=== PATIENT | male | born 1975 | race Hispanic/Latino ===

== ENCOUNTER 2016-11-29 08:31 | Inpatient (IN) | payer BC ==
--- NOTE | 2016-11-29 09:18 | ED PDOC ---
HPI: Back Chief Complaint (Provider): Intractable back pain History Per: Patient History/Exam Limitations: no limitations Current Symptoms Are (Timing): Still Present Quality Of Discomfort: "Pain" Severity: Severe Pain Scale Rating Of: 6 Associated Symptoms: New Numbness Exacerbating Factor(s): Movement, Standing Additional History Per: Patient Additional Complaint(s): 41 yo M with PMH of HTN presents with intractable back pain. Pt states he has had pain x 2 years but this has gotten acutely worse. Pain radiates down both legs, R>L, with occasional numbness in b/l legs. Denies bowel/bladder incontinence. Pt states PO pain medications do not help to relieve the pain at all. Denies any fall or trauma. <Kitty Han - Last Filed: 11/29/16 10:55> <Jewels Kay - Last Filed: 11/29/16 16:48> Time Seen by Provider: 11/29/16 08:56 Chief Complaint (Nursing): Back Pain Past Medical History Reviewed: Historical Data, Nursing Documentation, Vital Signs - Medical History PMH: HTN - Family History Family History: States: Unknown Family Hx <Kitty Han - Last Filed: 11/29/16 10:55> Vital Signs: Last Vital Signs Temp 98.6 F 11/29/16 12:01 Pulse 107 H 11/29/16 12:01 Resp 20 11/29/16 12:01 BP 124/78 11/29/16 12:01 Pulse Ox 95 11/29/16 12:01 <Jewels Kay - Last Filed: 11/29/16 16:48> - Home Medications Home Medications: Ambulatory Orders Medication Instructions Recorded Lisinopril [Zestril] 10 mg PO DAILY 11/29/16 - Allergies Allergies/Adverse Reactions: Allergies Allergy/AdvReac Type Severity Reaction Status Date / Time No Known Allergies Allergy Verified 11/29/16 08:35 Review of Systems Constitutional: Negative for: Fever, Chills Cardiovascular: Negative for: Chest Pain Respiratory: Negative for: Shortness of Breath Genitourinary Male: Negative for: Incontinence Musculoskeletal: Positive for: Back Pain <Kitty Han - Last Filed: 11/29/16 10:55> Physical Exam - Reviewed Nursing Documentation Reviewed: Yes Vital Signs Reviewed: Yes - Physical Exam Appears: Positive for: No Acute Distress Head Exam: Positive for: NORMAL INSPECTION Skin: Positive for: Normal Color, Warm, Dry Eye Exam: Positive for: Normal appearance Cardiovascular/Chest: Positive for: Regular Rate, Rhythm Respiratory: Positive for: Normal Breath Sounds Gastrointestinal/Abdominal: Positive for: Soft. Negative for: Tenderness Back: Positive for: Normal Inspection, Vertebral Tenderness (LS spine) Extremity: Positive for: Other (venous stasis changes b/l LE). Negative for: Calf Tenderness Neurologic/Psych: Positive for: Alert, Oriented, Gait (antalgic 2/2 back pain) <Kitty Han - Last Filed: 11/29/16 10:55> - Progress ED Course And Treament: Pt to be admitted. Dr. Wiley aware and accepts admission. <Kitty Han - Last Filed: 11/29/16 10:55> - Laboratory Results Result Diagrams: 11/29/16 14:50 11/29/16 14:50 <Jewels Kay - Last Filed: 11/29/16 16:48> Disposition - Patient ED Disposition Is Patient to be Admitted: Yes - Disposition Disposition Time: 10:56 <Kitty Han - Last Filed: 11/29/16 10:55> <Jewels Kay - Last Filed: 11/29/16 16:48> - Clinical Impression Clinical Impression: Intractable low back pain - Disposition Condition: GOOD Addendum Addendum: 11/29/16 Pt with intractable back pain, Admit for further pain management. <Jewels Kay - Last Filed: 11/29/16 16:48>
[2016-11-29 15:09] LABS: BASO # 0.1 K/uL (0.0-0.2); BASO % 0.6 % (0.0-2.0); EOS # 0.3 K/uL (0.0-0.7); EOS % 2.4 % (0.0-4.0); HEMATOCRIT 46.5 % (35.0-51.0); LYMPH # 3.8 K/uL (1.0-4.3); LYMPH % 33.5 % (20.0-40.0); MEAN CELL VOLUME 88.5 fl (80.0-94.0); MEAN CORPUSCULAR HEMOGLOBIN 30.2 pg (27.0-31.0); MEAN CORPUSCULAR HGB CONC 34.1 g/dL (33.0-37.0); MEAN PLATELET VOLUME 8.1 fl (7.2-11.7); MONO # 0.8 K/uL (0.0-0.8); MONO % 7.1 % (0.0-10.0); NEUT # 6.4 K/uL (1.8-7.0); NEUT % 56.4 % (50.0-75.0); RED CELL DISTRIBUTION WIDTH 14.1 % (11.5-14.5); WHITE BLOOD COUNT 11.4 K/uL (4.8-10.8)
[2016-11-29 15:16] LABS: ALB/GLOB RATIO 1.5 (1.0-2.1); ALKALINE PHOSPHATASE 71 U/L (38-126); ALT/SGPT 32 U/L (21-72); AST/SGOT 29 U/L (17-59); BILIRUBIN,TOTAL 0.8 mg/dl (0.2-1.3); BLOOD UREA NITROGEN 18 mg/dl (9-20); CALCIUM 9.6 mg/dL (8.4-10.2); CARBON DIOXIDE 24 mmol/L (22-30); CHLORIDE 101 mmol/L (98-107); GFR AFRICAN-AMERICAN > 60; GLUCOSE,RANDOM 96 mg/dL (75-110); SODIUM 138 mmol/l (132-148); TOTAL PROTEIN 7.6 G/DL (6.3-8.2)
[2016-11-29 16:05] LABS: PARTIAL THROMBOPLASTIN TIME 30.8 SECONDS (23.3-32.5)
--- NOTE | 2016-11-30 00:18 | CP.PCM.HP ---
History of Present Illness - History of Present Illness History of Present Illness: This is a 41 y/o male admitted through the ER for intractable pain. 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 He has been suffering from chronic low back pain for 2 years which at times radiate to the lower extremities right more than left. He denies any trauma or being in an accident. Herber otero takes marijuana for pain relief. He noted some atrophy of the right calf and noted increasing pain on the lower extremity. Medical Hx HTN Denies any allergy. Present on Admission - Present on Admission Any Indicators Present on Admission: No History of DVT/PE: No History of Uncontrolled Diabetes: No Urinary Catheter: No Decubitus Ulcer Present: No Review of Systems - Musculoskeletal Musculoskeletal: Back Pain, Muscle Weakness, Radiating Pain into Limb Past Patient History - Past Medical History & Family History Past Medical History?: Yes - Past Social History Smoking Status: Never Smoked - CARDIAC Hx Cardiac Disorders: Yes - MUSCULOSKELETAL/RHEUMATOLOGICAL Hx Falls: No - PSYCHIATRIC Hx Substance Use: No - SURGICAL HISTORY Hx Surgeries: No - ANESTHESIA Hx Anesthesia: No Meds Allergies/Adverse Reactions: Allergies Allergy/AdvReac Type Severity Reaction Status Date / Time No Known Allergies Allergy Verified 11/29/16 08:35 Physical Exam - Head Exam Head Exam: NORMAL INSPECTION - Eye Exam Eye Exam: Normal appearance - Respiratory Exam Respiratory Exam: Clear to Auscultation Bilateral - Extremities Exam Additional comments: atrophy of the right calf Results - Vital Signs Recent Vital Signs: Last Vital Signs Temp 97.8 F 11/29/16 16:58 Pulse 56 L 11/29/16 16:58 Resp 18 11/29/16 16:58 BP 142/77 11/29/16 16:58 Pulse Ox 96 11/29/16 16:58 - Labs Result Diagrams: 11/29/16 14:50 11/29/16 14:50 Labs: Laboratory Results - last 24 hr 11/29/16 11/29/16 11/29/16 14:50 14:50 14:50 WBC 11.4 H RBC 5.26 Hgb 15.9 Hct 46.5 MCV 88.5 MCH 30.2 MCHC 34.1 RDW 14.1 Plt Count 235 MPV 8.1 Neut % (Auto) 56.4 Lymph % (Auto) 33.5 [place] % (Auto) 7.1 Eos % (Auto) 2.4 Baso % (Auto) 0.6 Neut # 6.4 Lymph # 3.8 [place] # 0.8 Eos # 0.3 Baso # 0.1 PT 10.7 INR 1.03 APTT 30.8 Sodium 138 Potassium 4.0 Chloride 101 Carbon Dioxide 24 Anion Gap 16 BUN 18 Creatinine 0.8 Est GFR ( Amer) > 60 Est GFR (Non-Af Amer) > 60 Random Glucose 96 Calcium 9.6 Total Bilirubin 0.8 AST 29 ALT 32 Alkaline Phosphatase 71 Total Protein 7.6 Albumin 4.5 Globulin 3.1 Albumin/Globulin Ratio 1.5 Assessment & Plan (1) Atrophy of calf muscles on right Status: Acute (2) Hypertension Status: Acute (3) Intractable low back pain Status: Acute - Assessment and Plan (Free Text) Plan: Cont all meds TSH check labs adjust fluids therapy pain meds lev 4 oplan cont meds cont NV
[2016-11-30] MEDS: Dextrose 5%/0.45% NS 1,000 ML IV SCH ×3 (06:02→22:56)
[2016-11-30] MEDS ORDERED: Absorbable Gelatin Sponge Size 12-7 ONE (06:56)
[2016-11-30] MEDS ORDERED: Bupivacaine HCl 0.25% PF (30 ml) Inj ONE (06:56)
[2016-11-30] MEDS ORDERED: Lidocaine 2% w Epi 1:100,000 Inj IJ ONE (06:57)
[2016-11-30] MEDS ORDERED: Thrombin Topical 5,000 IU Spray Kit ONE (06:57)
[2016-11-30] MEDS ORDERED: ePHEDrine 50 mg/ml Inj ONE (07:03)
[2016-11-30] MEDS ORDERED: Midazolam 2 MG/2 ML VIAL ONE (07:03)
[2016-11-30] MEDS ORDERED: Propofol 10 mg/ml Inj (20 ML) ONE (07:03)
[2016-11-30] MEDS ORDERED: Succinylcholine 200 mg/10 ml Inj IV ONE (07:03)
[2016-11-30] MEDS ORDERED: Rocuronium 10 mg/ml (5 ml) ONE ×2 (07:19)
[2016-11-30] MEDS ORDERED: Lactated Ringer's 1,000 ML IV ONE ×2 (07:30→09:35)
--- NOTE | 2016-11-30 08:00 | CP.PCM.CON ---
History of Present Illness - History of Present Illness History of Present Illness: DR. Travis asked to see pt who was admitted with intractable LBP radiating to BLE > R leg with ongoing paresthesias x many years and worsening,pt has failed conservative management with PT,epidural injections and prescribed meds,MRI images reviewed, pt found to have lumbar spondylosis with HNP and instability, surgical and non surgical options discussed with pt,due to worsening symptoms and difficulty ambulating pt scheduled to have a lumbar lami and fusion L3-4,L4- [address] Travis. Past Patient History - Past Medical History & Family History Past Medical History?: Yes - Past Social History Smoking Status: Never Smoked - CARDIAC Hx Cardiac Disorders: Yes - MUSCULOSKELETAL/RHEUMATOLOGICAL Hx Falls: No - PSYCHIATRIC Hx Substance Use: No - SURGICAL HISTORY Hx Surgeries: No - ANESTHESIA Hx Anesthesia: No Meds Allergies/Adverse Reactions: Allergies Allergy/AdvReac Type Severity Reaction Status Date / Time No Known Allergies Allergy Verified 11/29/16 08:35 - Medications Medications: Current Medications Dextrose/Sodium Chloride (Dextrose 5%/0.45% Ns 1000 Ml) 1,000 mls @ 80 mls/hr IV .[id number] [facility] Stop: 11/30/16 21:43 Last Admin: 11/30/16 06:02 Dose: 80 mls/hr Lisinopril (Zestril) 10 mg PO DAILY [facility] Morphine Sulfate (Morphine) 2 mg IVP Q6 PRN PRN Reason: Pain, severe (8-10) Results - Vital Signs Recent Vital Signs: Last Vital Signs Temp 97.7 F 11/30/16 00:32 Pulse 60 11/30/16 00:32 Resp 18 11/30/16 00:32 BP 125/79 11/30/16 00:32 Pulse Ox 95 11/30/16 00:32 - Labs Result Diagrams: 11/29/16 14:50 11/29/16 14:50 Labs: Laboratory Results - last 24 hr 11/29/16 11/29/16 11/29/16 14:50 14:50 14:50 WBC 11.4 H RBC 5.26 Hgb 15.9 Hct 46.5 MCV 88.5 MCH 30.2 MCHC 34.1 RDW 14.1 Plt Count 235 MPV 8.1 Neut % (Auto) 56.4 Lymph % (Auto) 33.5 [place] % (Auto) 7.1 Eos % (Auto) 2.4 Baso % (Auto) 0.6 Neut # 6.4 Lymph # 3.8 [place] # 0.8 Eos # 0.3 Baso # 0.1 PT 10.7 INR 1.03 APTT 30.8 Sodium 138 Potassium 4.0 Chloride 101 Carbon Dioxide 24 Anion Gap 16 BUN 18 Creatinine 0.8 Est GFR ( Amer) > 60 Est GFR (Non-Af Amer) > 60 Random Glucose 96 Calcium 9.6 Total Bilirubin 0.8 AST 29 ALT 32 Alkaline Phosphatase 71 Total Protein 7.6 Albumin 4.5 Globulin 3.1 Albumin/Globulin Ratio 1.5 Assessment & Plan - Assessment and Plan (Free Text) Assessment: 41 yo male with ongoing LBP and radiculapathy,Lumbar Spondylosis and Instability ,failed conservative management Plan: To have a proposed Lumbar Lami and Fusion of L3-4,L4-[address] Travis.
[2016-11-30] MEDS ORDERED: HEMOSTATIC MATRIX 10 ML DIS.NEEDLE TOP ONE ×2 (08:18)
[2016-11-30] MEDS ORDERED: Dexamethasone 4 mg/1 ml ONE ×2 (08:22)
[2016-11-30] MEDS ORDERED: Neostigmine Methylsulfate 2 MG/2 ML ML IV ONE (08:49)
[2016-11-30] MEDS ORDERED: Bupivacaine 0.25% Inj(30mL) IJ ONE ×2 (09:02→09:35)
[2016-11-30] MEDS ORDERED: Thrombin Topical 5,000 IU Spray Kit TOP ONE (09:40)
[2016-11-30] MEDS ORDERED: Absorbable Gelatin Sponge Size 12-7 TP ONE (09:40)
[2016-11-30] MEDS ORDERED: HYDROmorphone 0.5 mg/0.5 ml ISec ONE (10:06)
[2016-11-30] MEDS: HYDROmorphone 0.5 mg/0.5 ml ISec IVP PRN ×2 (10:20→10:30)
[2016-11-30] MEDS ORDERED: Naloxone 0.4 mg/ml Inj (Adult) IVP PRN (11:04)
--- NOTE | 2016-11-30 13:35 | CARD ---
APPROVED REPORT EKG Measurement Heart [id number] <Conclusion> Sinus bradycardia with premature atrial complexes Otherwise normal ECG
--- NOTE | 2016-11-30 14:50 | RAD ---
PROCEDURE: This report fluoroscopy greater than 1 hour HISTORY: LUMBAR LAMINECTOMY WITH FUSION COMPARISON: None TECHNIQUE: Standard protocol for this study/examination. FINDINGS: Total fluoroscopic time (continuous mode) utilized during the procedure: 91.7 seconds IMPRESSION: 1. Submitted images from the current procedure: 1.0
--- NOTE | 2016-11-30 15:58 | OP ---
PROCEDURE DATE: 11/30/2016 PREOPERATIVE DIAGNOSES: Lumbar spondylosis, cauda equina compression. POSTOPERATIVE DIAGNOSES: Lumbar spondylosis, cauda equina compression. PROCEDURE: L3-L5 lumbar laminectomy decompression, L3-L5 pedicle screw fixation and instrumentation using Amendia system, L3-L5 posterolateral fusion. Fluoroscopy has been used. Microscope has been u sed. SURGEON: Dr. Travis [employer] DIVER: MAGGIE Gross. Eva Ingram stayed throughout the case from the beg inning to the end, helped me perform the surgery. DESCRIPTION OF PROCEDURE: The patient was brought to the operating room, administered general endotr acheal anesthesia, placed in a prone position on a Tano table. Care was taken to protect all the pressure points. Back of the lumbar area thoroughly prepped in standard sterile manner after marking for skin incision for a lumbar laminectomy from L3-L5. After prepping and draping the area, skin akhtar s been incised. Bleeding skin areas have been controlled by bipolar personnel counselor. Using a Bovie coagu lator, paraspinal muscles have been detached from attachment from spinous process lamina of L3, L4, L 5. Identification of levels has been done with help of a fluoroscopy. By using a traditional landma rk, point of entry has been noted for the pedicle screw fixation at L3, L4 L5. Initially, a K-wire a nd later a drill has been used in order to enter the pedicles. Polyaxial titanium screws of Amendia system have been placed. The bone has been found to be soft. Titanium rods have been placed and cap nuts have been used in order to secure them. Under microscope magnification and illumination, the s pinous processes of L3, L4, L5 have been removed. By using a high-speed drill, the lamina has been d rilled to actual thickness. By using a fine Kerrison punch, thinned out surrounding lamina, medial p art of the facets, ligamentum flavum has been removed, decompressing this area. After that, lateral aspect of facet joint, transverse process has been decorticated, demineralized bone placed in the are a achieving a posterolateral fusion. After that, the hemostasis best achieved. Tano drain is knag delroy in the wound, brought out through separate stab skin incision. Muscles and fascia closed with 1- 0 Vicryl, subcutaneous with 3-0 Vicryl, skin has been closed using esmer. The patient tolerated th e procedure. After procedure, mobilized to the recovery room in stable and awake condition. Dago Travis MD cc: 252 TT: 11/30/2016 15:57:42 sn
[2016-11-30] MEDS: Dexamethasone 4 MG in Sodium Chloride 0.9% 50 ML IVPB SCH ×2 (17:32→22:02)
[2016-11-30] MEDS: ceFAZolin 1 GM in Sodium Chloride 0.9% 100 ML IVPB SCH (22:01)
[2016-12-01] MEDS: Dexamethasone 4 MG in Sodium Chloride 0.9% 50 ML IVPB SCH ×4 (03:55→21:39)
[2016-12-01 07:39] LABS: BASO % 0.1 % (0.0-2.0); EOS % 0.3 % (0.0-4.0); HEMATOCRIT 39.5 % (35.0-51.0); LYMPH # 1.8 K/uL (1.0-4.3); LYMPH % 10.5 % (20.0-40.0); MEAN CELL VOLUME 89.7 fl (80.0-94.0); MEAN CORPUSCULAR HEMOGLOBIN 29.8 pg (27.0-31.0); MEAN CORPUSCULAR HGB CONC 33.2 g/dL (33.0-37.0); MEAN PLATELET VOLUME 8.6 fl (7.2-11.7); MONO # 1.2 K/uL (0.0-0.8); MONO % 6.9 % (0.0-10.0); NEUT # 14.5 K/uL (1.8-7.0); NEUT % 82.2 % (50.0-75.0); RED CELL DISTRIBUTION WIDTH 14.5 % (11.5-14.5); WHITE BLOOD COUNT 17.6 K/uL (4.8-10.8)
[2016-12-01 07:43] LABS: BLOOD UREA NITROGEN 16 mg/dl (9-20); CALCIUM 8.9 mg/dL (8.4-10.2); CARBON DIOXIDE 24 mmol/L (22-30); CHLORIDE 100 mmol/L (98-107); GFR AFRICAN-AMERICAN > 60; GLUCOSE,RANDOM 125 mg/dL (75-110); POTASSIUM 4.3 MMOL/L (3.6-5.0); SODIUM 135 mmol/l (132-148)
--- NOTE | 2016-12-01 10:50 | CP.PCM.PN ---
<Rae Beal - Last Filed: 12/01/16 10:54> Subjective - Date & Time of Evaluation Date of Evaluation: 12/01/16 Time of Evaluation: 10:48 - Subjective Subjective: evaluated with attending. back pain controlled. Denies numbness, tingling. making urine. Tolerating PO. Objective - Vital Signs/Intake and Output Vital Signs (last 24 hours): Temp Pulse Resp BP Pulse Ox 97.9 F 60 18 119/71 98 12/01/16 09:07 12/01/16 09:38 12/01/16 09:07 12/01/16 09:38 12/01/16 09:07 Intake and Output: 12/01/16 12/01/16 06:59 18:59 Intake Total 975 800 Output Total 1225 215 Balance -250 585 - Medications Medications: Current Medications Docusate Sodium (Colace) 100 mg PO BID [facility] Hydromorphone HCl (Dilaudid) 2 mg IVP Q4 PRN PRN Reason: Pain, severe (8-10) Dexamethasone 4 mg/ Sodium (Chloride) 51 mls @ 102 mls/hr IVPB Q6 [facility] Last Admin: 12/01/16 09:36 Dose: 102 mls/hr Cefazolin Sodium 1 gm/ Sodium (Chloride) 100 mls @ 100 mls/hr IVPB Q12 [facility] Last Admin: 11/30/16 22:01 Dose: 100 mls/hr Lisinopril (Zestril) 10 mg PO DAILY [facility] Last Admin: 12/01/16 09:38 Dose: 10 mg Naloxone HCl (Narcan) 0.1 mg IVP Q2M PRN PRN Reason: Shortness of Breath Ondansetron HCl (Zofran Inj) 4 mg IVP Q8 PRN PRN Reason: Nausea/Vomiting Oxycodone/Acetaminophen (Percocet 5/325 Mg Tab) 2 tab PO Q4 PRN PRN Reason: Pain, moderate (4-7) Stop: 12/04/16 08:57 Sennosides (Senokot Tab) 8.6 mg PO HS [facility] - Labs Labs: 12/01/16 05:10 12/01/16 05:10 PT 10.7 SECONDS (9.6-11.2) 11/29/16 14:50 INR 1.03 (0.92-1.08) 11/29/16 14:50 APTT 30.8 SECONDS (23.3-32.5) 11/29/16 14:50 - Constitutional Appears: Non-toxic, No Acute Distress - Head Exam Head Exam: NORMAL INSPECTION - Eye Exam Eye Exam: Normal appearance - ENT Exam ENT Exam: Mucous Membranes Moist - Neck Exam Neck Exam: Normal Inspection - Respiratory Exam Respiratory Exam: Clear to Ausculation Bilateral - Cardiovascular Exam Cardiovascular Exam: REGULAR RHYTHM - GI/Abdominal Exam GI & Abdominal Exam: Soft - Extremities Exam Extremities Exam: absent: Pedal Edema - Back Exam Additional comments: brace in place/intact RAFIA drain x2, sanginous drainage - Neurological Exam Neurological Exam: Alert, Oriented x3 Additional comments: motor/sensation grossly intact - Skin Skin Exam: Dry, Warm Assessment and Plan - Assessment and Plan (Free Text) Assessment: 41yo M with PMHx HTN s/p laminectomy and fusion L3-L5 POD#1 s/p laminectomy and fusion L3-L5 -pain control -zofran -regular diet as tolerated -steroid -NS on board, appreciate input -PT HTN -c/w home med DVT ppx -SCDs <Enoc Wiley - Last Filed: 12/05/16 09:18> Objective - Vital Signs/Intake and Output Vital Signs (last 24 hours): Temp Pulse Resp BP Pulse Ox 97.6 F 51 L 18 106/63 99 12/05/16 07:56 12/05/16 09:15 12/05/16 07:56 12/05/16 09:15 12/05/16 07:56 Intake and Output: 12/05/16 12/05/16 06:59 18:59 Intake Total 850 Output Total 1010 Balance -160 - Medications Medications: Current Medications Docusate Sodium (Colace) 100 mg PO BID [facility] Last Admin: 12/05/16 09:15 Dose: 100 mg Cefazolin Sodium 1 gm/ Sodium (Chloride) 100 mls @ 100 mls/hr IVPB Q12 [facility] Last Admin: 12/04/16 22:10 Dose: 100 mls/hr Dexamethasone 4 mg/ Sodium (Chloride) 51 mls @ 102 mls/hr IVPB Q8 [facility] Last Admin: 12/05/16 09:14 Dose: 102 mls/hr Lisinopril (Zestril) 10 mg PO DAILY [facility] Last Admin: 12/05/16 09:15 Dose: Not Given Naloxone HCl (Narcan) 0.1 mg IVP Q2M PRN PRN Reason: Shortness of Breath Ondansetron HCl (Zofran Inj) 4 mg IVP Q8 PRN PRN Reason: Nausea/Vomiting Oxycodone/Acetaminophen (Percocet 5/325 Mg Tab) 2 tab PO Q4 PRN PRN Reason: Pain, moderate (4-7) Stop: 12/08/16 02:21 Last Admin: 12/05/16 02:35 Dose: 2 tab Sennosides (Senokot Tab) 8.6 mg PO HS [facility] Last Admin: 12/04/16 22:11 Dose: 8.6 mg - Labs Labs: 12/03/16 06:00 12/03/16 06:00 PT 10.7 SECONDS (9.6-11.2) 11/29/16 14:50 INR 1.03 (0.92-1.08) 11/29/16 14:50 APTT 30.8 SECONDS (23.3-32.5) 11/29/16 14:50 Assessment and Plan (1) Atrophy of calf muscles on right Status: Acute (2) Hypertension Status: Acute (3) Intractable low back pain Status: Acute - Assessment and Plan (Free Text) Plan: I was present durign evaluation and discussed with Dr Rae gomez plans of care and pain mgt and phys therapy post op. Enoc Wiley M.D.
[2016-12-01] MEDS: Oxycodone/Acetaminophen 5/325 mg Tab PO PRN ×3 (10:53→23:39)
[2016-12-01] MEDS: ceFAZolin 1 GM in Sodium Chloride 0.9% 100 ML IVPB SCH ×2 (11:25→20:25)
[2016-12-02] MEDS: Dexamethasone 4 MG in Sodium Chloride 0.9% 50 ML IVPB SCH ×3 (03:07→17:29)
[2016-12-02] MEDS: Oxycodone/Acetaminophen 5/325 mg Tab PO PRN ×2 (09:23→19:41)
[2016-12-02] MEDS: ceFAZolin 1 GM in Sodium Chloride 0.9% 100 ML IVPB SCH ×2 (09:26→21:50)
--- NOTE | 2016-12-02 11:35 | CP.PCM.PN ---
Subjective - Date & Time of Evaluation Date of Evaluation: 12/02/16 Time of Evaluation: 08:00 - Subjective Subjective: c/o pain partially alleviated with pain meds,tracy PO,voiding,+ flatus,amb with PT yesterday Objective - Vital Signs/Intake and Output Vital Signs (last 24 hours): Temp Pulse Resp BP Pulse Ox 97.7 F 85 18 128/73 93 L 12/02/16 07:48 12/02/16 09:24 12/02/16 07:48 12/02/16 09:24 12/02/16 07:48 Intake and Output: 12/02/16 12/02/16 06:59 18:59 Intake Total 3300 Output Total 4360 Balance -1060 - Medications Medications: Current Medications Docusate Sodium (Colace) 100 mg PO BID [facility] Last Admin: 12/02/16 09:25 Dose: 100 mg Hydromorphone HCl (Dilaudid) 2 mg IVP Q4 PRN PRN Reason: Pain, severe (8-10) Last Admin: 12/02/16 02:16 Dose: 2 mg Dexamethasone 4 mg/ Sodium (Chloride) 51 mls @ 102 mls/hr IVPB Q6 [facility] Last Admin: 12/02/16 09:27 Dose: 102 mls/hr Cefazolin Sodium 1 gm/ Sodium (Chloride) 100 mls @ 100 mls/hr IVPB Q12 [facility] Last Admin: 12/02/16 09:26 Dose: 100 mls/hr Lisinopril (Zestril) 10 mg PO DAILY [facility] Last Admin: 12/02/16 09:24 Dose: 10 mg Naloxone HCl (Narcan) 0.1 mg IVP Q2M PRN PRN Reason: Shortness of Breath Ondansetron HCl (Zofran Inj) 4 mg IVP Q8 PRN PRN Reason: Nausea/Vomiting Oxycodone/Acetaminophen (Percocet 5/325 Mg Tab) 2 tab PO Q4 PRN PRN Reason: Pain, moderate (4-7) Stop: 12/04/16 08:57 Last Admin: 12/02/16 09:23 Dose: 2 tab Sennosides (Senokot Tab) 8.6 mg PO HS [facility] Last Admin: 12/01/16 21:40 Dose: 8.6 mg - Labs Labs: 12/01/16 05:10 12/01/16 05:10 PT 10.7 SECONDS (9.6-11.2) 11/29/16 14:50 INR 1.03 (0.92-1.08) 11/29/16 14:50 APTT 30.8 SECONDS (23.3-32.5) 11/29/16 14:50 - Constitutional Appears: Well - Head Exam Head Exam: ATRAUMATIC, NORMAL INSPECTION, NORMOCEPHALIC - Eye Exam Eye Exam: EOMI, Normal appearance - Respiratory Exam Respiratory Exam: Clear to Ausculation Bilateral - Cardiovascular Exam Cardiovascular Exam: REGULAR RHYTHM, +S1, +S2 - GI/Abdominal Exam GI & Abdominal Exam: Soft, Normal Bowel Sounds - Back Exam Additional comments: + incisional tenderness,RAFIA's patent (85cc and 45cc overnight/serosanguinous), wound C/D/I - Neurological Exam Neurological Exam: Alert, Oriented x3 Additional comments: ACEVEDO x 4 antigravity with good strength - Skin Skin Exam: Dry, Intact Assessment and Plan - Assessment and Plan (Free Text) Assessment: 41 yo male POD#2 Decompressive Lumbar Laminectomy with instrumented fusion L3-5, L3-5 non instrumented posterior lateral fusion with Dr. Travis/Neurologically stable Plan: pt doing well,drains to stay in,cont OOB,pain control,d/c planning,d/w Dr. Travis
--- NOTE | 2016-12-02 11:49 | CP.PCM.PN ---
Addendum entered and electronically signed by Rae Beal MD 12/02/16 12:00: POD#2 s/p laminectomy and fusion L3-L5 -RAFIA drain to be pulled likely tomorrow depending and amount drained Original Note: <Rae Beal - Last Filed: 12/02/16 11:47> Subjective - Date & Time of Evaluation Date of Evaluation: 12/02/16 Time of Evaluation: 11:47 - Subjective Subjective: evaluated with attending. back pain controlled. Denies numbness, tingling. making urine. Tolerating PO. Objective - Vital Signs/Intake and Output Vital Signs (last 24 hours): Temp Pulse Resp BP Pulse Ox 97.7 F 85 18 128/73 93 L 12/02/16 07:48 12/02/16 09:24 12/02/16 07:48 12/02/16 09:24 12/02/16 07:48 Intake and Output: 12/02/16 12/02/16 06:59 18:59 Intake Total 3300 Output Total 4360 Balance -1060 - Medications Medications: Current Medications Docusate Sodium (Colace) 100 mg PO BID [facility] Last Admin: 12/02/16 09:25 Dose: 100 mg Hydromorphone HCl (Dilaudid) 2 mg IVP Q4 PRN PRN Reason: Pain, severe (8-10) Last Admin: 12/02/16 02:16 Dose: 2 mg Dexamethasone 4 mg/ Sodium (Chloride) 51 mls @ 102 mls/hr IVPB Q6 [facility] Last Admin: 12/02/16 09:27 Dose: 102 mls/hr Cefazolin Sodium 1 gm/ Sodium (Chloride) 100 mls @ 100 mls/hr IVPB Q12 [facility] Last Admin: 12/02/16 09:26 Dose: 100 mls/hr Lisinopril (Zestril) 10 mg PO DAILY [facility] Last Admin: 12/02/16 09:24 Dose: 10 mg Naloxone HCl (Narcan) 0.1 mg IVP Q2M PRN PRN Reason: Shortness of Breath Ondansetron HCl (Zofran Inj) 4 mg IVP Q8 PRN PRN Reason: Nausea/Vomiting Oxycodone/Acetaminophen (Percocet 5/325 Mg Tab) 2 tab PO Q4 PRN PRN Reason: Pain, moderate (4-7) Stop: 12/04/16 08:57 Last Admin: 12/02/16 09:23 Dose: 2 tab Sennosides (Senokot Tab) 8.6 mg PO HS [facility] Last Admin: 12/01/16 21:40 Dose: 8.6 mg - Labs Labs: 12/01/16 05:10 12/01/16 05:10 PT 10.7 SECONDS (9.6-11.2) 11/29/16 14:50 INR 1.03 (0.92-1.08) 11/29/16 14:50 APTT 30.8 SECONDS (23.3-32.5) 11/29/16 14:50 - Constitutional Appears: Non-toxic, No Acute Distress - Head Exam Head Exam: NORMAL INSPECTION - Eye Exam Eye Exam: Normal appearance - ENT Exam ENT Exam: Mucous Membranes Moist - Neck Exam Neck Exam: Normal Inspection - Respiratory Exam Respiratory Exam: Clear to Ausculation Bilateral - Cardiovascular Exam Cardiovascular Exam: REGULAR RHYTHM - GI/Abdominal Exam GI & Abdominal Exam: Soft, Normal Bowel Sounds - Extremities Exam Extremities Exam: absent: Pedal Edema Additional comments: chronic abrasions - Back Exam Additional comments: binder in place RAFIA drain x2, sanguineous drainage - Neurological Exam Neurological Exam: Alert, Oriented x3 Additional comments: motor/sensation grossly intact - Skin Skin Exam: Dry, Warm Assessment and Plan - Assessment and Plan (Free Text) Assessment: 41yo M with PMHx HTN s/p laminectomy and fusion L3-L5 POD#1 s/p laminectomy and fusion L3-L5 -pain control -zofran -regular diet as tolerated -taper steroid -NS on board, appreciate input. RAFIA drain to be pulled -PT: d/c home HTN -c/w home med DVT ppx -SCDs Dispo: d/c home tomorrow <Enoc Wiley - Last Filed: 12/05/16 09:19> Objective - Vital Signs/Intake and Output Vital Signs (last 24 hours): Temp Pulse Resp BP Pulse Ox 97.6 F 51 L 18 106/63 99 12/05/16 07:56 12/05/16 09:15 12/05/16 07:56 12/05/16 09:15 12/05/16 07:56 Intake and Output: 12/05/16 12/05/16 06:59 18:59 Intake Total 850 Output Total 1010 Balance -160 - Medications Medications: Current Medications Docusate Sodium (Colace) 100 mg PO BID [facility] Last Admin: 12/05/16 09:15 Dose: 100 mg Cefazolin Sodium 1 gm/ Sodium (Chloride) 100 mls @ 100 mls/hr IVPB Q12 [facility] Last Admin: 12/04/16 22:10 Dose: 100 mls/hr Dexamethasone 4 mg/ Sodium (Chloride) 51 mls @ 102 mls/hr IVPB Q8 [facility] Last Admin: 12/05/16 09:14 Dose: 102 mls/hr Lisinopril (Zestril) 10 mg PO DAILY [facility] Last Admin: 12/05/16 09:15 Dose: Not Given Naloxone HCl (Narcan) 0.1 mg IVP Q2M PRN PRN Reason: Shortness of Breath Ondansetron HCl (Zofran Inj) 4 mg IVP Q8 PRN PRN Reason: Nausea/Vomiting Oxycodone/Acetaminophen (Percocet 5/325 Mg Tab) 2 tab PO Q4 PRN PRN Reason: Pain, moderate (4-7) Stop: 12/08/16 02:21 Last Admin: 12/05/16 02:35 Dose: 2 tab Sennosides (Senokot Tab) 8.6 mg PO HS [facility] Last Admin: 12/04/16 22:11 Dose: 8.6 mg - Labs Labs: 12/03/16 06:00 12/03/16 06:00 PT 10.7 SECONDS (9.6-11.2) 11/29/16 14:50 INR 1.03 (0.92-1.08) 11/29/16 14:50 APTT 30.8 SECONDS (23.3-32.5) 11/29/16 14:50 Assessment and Plan (1) Atrophy of calf muscles on right Status: Acute (2) Hypertension Status: Acute (3) Intractable low back pain Status: Acute - Assessment and Plan (Free Text) Plan: I was present during evaluation and discussed with Dr Rae gomez plans of care and PT. Enoc Wiley M.D.
[2016-12-03] MEDS: Dexamethasone 4 MG in Sodium Chloride 0.9% 50 ML IVPB SCH ×3 (00:16→16:47)
[2016-12-03] MEDS: Oxycodone/Acetaminophen 5/325 mg Tab PO PRN ×3 (05:59→20:20)
[2016-12-03 08:01] LABS: HEMATOCRIT 41.9 % (35.0-51.0); MEAN CORPUSCULAR HEMOGLOBIN 30.3 pg (27.0-31.0); MEAN CORPUSCULAR HGB CONC 33.3 g/dL (33.0-37.0); RED CELL DISTRIBUTION WIDTH 14.3 % (11.5-14.5); WHITE BLOOD COUNT 15.4 K/uL (4.8-10.8)
[2016-12-03 08:03] LABS: BLOOD UREA NITROGEN 18 mg/dl (9-20); CALCIUM 9.3 mg/dL (8.4-10.2); CARBON DIOXIDE 27 mmol/L (22-30); CHLORIDE 97 mmol/L (98-107); GFR AFRICAN-AMERICAN > 60; GLUCOSE,RANDOM 133 mg/dL (75-110); POTASSIUM 4.1 MMOL/L (3.6-5.0); SODIUM 138 mmol/l (132-148)
[2016-12-03] MEDS: ceFAZolin 1 GM in Sodium Chloride 0.9% 100 ML IVPB SCH ×2 (08:45→20:21)
[2016-12-03] MEDS: HYDROmorphone 0.5 mg/0.5 ml ISec IVP PRN (15:37)
[2016-12-04] MEDS: HYDROmorphone 0.5 mg/0.5 ml ISec IVP PRN ×2 (00:36→14:33)
[2016-12-04] MEDS: Dexamethasone 4 MG in Sodium Chloride 0.9% 50 ML IVPB SCH ×3 (00:37→17:29)
[2016-12-04] MEDS: Oxycodone/Acetaminophen 5/325 mg Tab PO PRN (08:55)
[2016-12-04] MEDS: ceFAZolin 1 GM in Sodium Chloride 0.9% 100 ML IVPB SCH ×2 (10:20→22:10)
[2016-12-04 16:29] VITALS: RESP 18
[2016-12-04] MEDS ORDERED: HYDROmorphone 0.5 mg/0.5 ml ISec IVP PRN (22:18)
[2016-12-05] MEDS: Dexamethasone 4 MG in Sodium Chloride 0.9% 50 ML IVPB SCH ×2 (01:10→09:14)
[2016-12-05] MEDS: Oxycodone/Acetaminophen 5/325 mg Tab PO PRN ×2 (02:35→09:19)
[2016-12-05 05:05] VITALS: TEMP 97.6
[2016-12-05 07:56] VITALS: BP 106/63; PULSE 51; O2SAT 99
--- NOTE | 2016-12-05 09:22 | CP.PCM.PN ---
Subjective - Date & Time of Evaluation Date of Evaluation: 12/03/16 Time of Evaluation: 09:30 - Subjective Subjective: Noted to have significant amount of drainage by op site. Has no back pain Able to walk a lot with minimal pain. Objective - Vital Signs/Intake and Output Vital Signs (last 24 hours): Temp Pulse Resp BP Pulse Ox 97.6 F 51 L 18 106/63 99 12/05/16 07:56 12/05/16 09:15 12/05/16 07:56 12/05/16 09:15 12/05/16 07:56 Intake and Output: 12/05/16 12/05/16 06:59 18:59 Intake Total 850 Output Total 1010 Balance -160 - Medications Medications: Current Medications Docusate Sodium (Colace) 100 mg PO BID [facility] Last Admin: 12/05/16 09:15 Dose: 100 mg Cefazolin Sodium 1 gm/ Sodium (Chloride) 100 mls @ 100 mls/hr IVPB Q12 [facility] Last Admin: 12/04/16 22:10 Dose: 100 mls/hr Dexamethasone 4 mg/ Sodium (Chloride) 51 mls @ 102 mls/hr IVPB Q8 [facility] Last Admin: 12/05/16 09:14 Dose: 102 mls/hr Lisinopril (Zestril) 10 mg PO DAILY [facility] Last Admin: 12/05/16 09:15 Dose: Not Given Naloxone HCl (Narcan) 0.1 mg IVP Q2M PRN PRN Reason: Shortness of Breath Ondansetron HCl (Zofran Inj) 4 mg IVP Q8 PRN PRN Reason: Nausea/Vomiting Oxycodone/Acetaminophen (Percocet 5/325 Mg Tab) 2 tab PO Q4 PRN PRN Reason: Pain, moderate (4-7) Stop: 12/08/16 02:21 Last Admin: 12/05/16 02:35 Dose: 2 tab Sennosides (Senokot Tab) 8.6 mg PO HS [facility] Last Admin: 12/04/16 22:11 Dose: 8.6 mg - Labs Labs: 12/03/16 06:00 12/03/16 06:00 PT 10.7 SECONDS (9.6-11.2) 11/29/16 14:50 INR 1.03 (0.92-1.08) 11/29/16 14:50 APTT 30.8 SECONDS (23.3-32.5) 11/29/16 14:50 - Head Exam Head Exam: NORMAL INSPECTION - Eye Exam Eye Exam: Normal appearance - ENT Exam ENT Exam: Mucous Membranes Moist - GI/Abdominal Exam GI & Abdominal Exam: Normal Bowel Sounds - Back Exam Additional comments: wound is clean - Neurological Exam Neurological Exam: Awake, Oriented x3 - Psychiatric Exam Psychiatric exam: Normal Mood Assessment and Plan (1) Atrophy of calf muscles on right Status: Acute (2) Hypertension Status: Acute (3) Intractable low back pain Status: Acute - Assessment and Plan (Free Text) Plan: continue meds will hold discharge due to excessive amount of drainage. Will recheck in AM Cont ambulation
--- NOTE | 2016-12-05 09:24 | CP.PCM.PN ---
Subjective - Date & Time of Evaluation Date of Evaluation: 12/04/16 Time of Evaluation: 10:00 - Subjective Subjective: Patient continues to have a lot of drainage. Has minimal back pain Ambulates without assistance. has no fever. Objective - Vital Signs/Intake and Output Vital Signs (last 24 hours): Temp Pulse Resp BP Pulse Ox 97.6 F 51 L 18 106/63 99 12/05/16 07:56 12/05/16 09:15 12/05/16 07:56 12/05/16 09:15 12/05/16 07:56 Intake and Output: 12/05/16 12/05/16 06:59 18:59 Intake Total 850 Output Total 1010 Balance -160 - Medications Medications: Current Medications Docusate Sodium (Colace) 100 mg PO BID [facility] Last Admin: 12/05/16 09:15 Dose: 100 mg Cefazolin Sodium 1 gm/ Sodium (Chloride) 100 mls @ 100 mls/hr IVPB Q12 [facility] Last Admin: 12/04/16 22:10 Dose: 100 mls/hr Dexamethasone 4 mg/ Sodium (Chloride) 51 mls @ 102 mls/hr IVPB Q8 [facility] Last Admin: 12/05/16 09:14 Dose: 102 mls/hr Lisinopril (Zestril) 10 mg PO DAILY [facility] Last Admin: 12/05/16 09:15 Dose: Not Given Naloxone HCl (Narcan) 0.1 mg IVP Q2M PRN PRN Reason: Shortness of Breath Ondansetron HCl (Zofran Inj) 4 mg IVP Q8 PRN PRN Reason: Nausea/Vomiting Oxycodone/Acetaminophen (Percocet 5/325 Mg Tab) 2 tab PO Q4 PRN PRN Reason: Pain, moderate (4-7) Stop: 12/08/16 02:21 Last Admin: 12/05/16 09:19 Dose: 2 tab Sennosides (Senokot Tab) 8.6 mg PO HS [facility] Last Admin: 12/04/16 22:11 Dose: 8.6 mg - Labs Labs: 12/03/16 06:00 12/03/16 06:00 PT 10.7 SECONDS (9.6-11.2) 11/29/16 14:50 INR 1.03 (0.92-1.08) 11/29/16 14:50 APTT 30.8 SECONDS (23.3-32.5) 11/29/16 14:50 - Eye Exam Eye Exam: Normal appearance - ENT Exam ENT Exam: Mucous Membranes Moist - Respiratory Exam Respiratory Exam: NORMAL BREATHING PATTERN - Cardiovascular Exam Cardiovascular Exam: REGULAR RHYTHM - GI/Abdominal Exam GI & Abdominal Exam: Normal Bowel Sounds - Neurological Exam Neurological Exam: Awake, Normal Gait, Oriented x3 Assessment and Plan (1) Atrophy of calf muscles on right Status: Acute (2) Hypertension Status: Acute (3) Intractable low back pain Status: Acute - Assessment and Plan (Free Text) Plan: Cont PT Cont ambulation discharge plan in AM. will keep drain till AM.
--- NOTE | 2016-12-05 09:25 | CP.PCM.DIS ---
Provider - Provider Date of Admission: 11/29/16 10:15 Attending physician: Enoc Wiley MD Time Spent in preparation of Discharge (in minutes): 45 Diagnosis - Discharge Diagnosis (1) Atrophy of calf muscles on right Status: Acute (2) Hypertension Status: Acute (3) Intractable low back pain Status: Acute Hospital Course - Lab Results Lab Results: Most Recent Lab Values WBC 15.4 K/uL (4.8-10.8) H 12/03/16 06:00 RBC 4.60 Mil/uL (4.40-5.90) 12/03/16 06:00 Hgb 14.0 g/dL (12.0-18.0) 12/03/16 06:00 Hct 41.9 % (35.0-51.0) 12/03/16 06:00 MCV 91.0 fl (80.0-94.0) 12/03/16 06:00 MCH 30.3 pg (27.0-31.0) 12/03/16 06:00 MCHC 33.3 g/dL (33.0-37.0) 12/03/16 06:00 RDW 14.3 % (11.5-14.5) 12/03/16 06:00 Plt Count 224 K/uL (130-400) 12/03/16 06:00 MPV 8.6 fl (7.2-11.7) 12/01/16 05:10 Neut % (Auto) 82.2 % (50.0-75.0) H 12/01/16 05:10 Lymph % (Auto) 10.5 % (20.0-40.0) L 12/01/16 05:10 [place] % (Auto) 6.9 % (0.0-10.0) 12/01/16 05:10 Eos % (Auto) 0.3 % (0.0-4.0) 12/01/16 05:10 Baso % (Auto) 0.1 % (0.0-2.0) 12/01/16 05:10 Neut # 14.5 K/uL (1.8-7.0) H 12/01/16 05:10 Lymph # 1.8 K/uL (1.0-4.3) 12/01/16 05:10 [place] # 1.2 K/uL (0.0-0.8) H 12/01/16 05:10 Eos # 0.0 K/uL (0.0-0.7) 12/01/16 05:10 Baso # 0.0 K/uL (0.0-0.2) 12/01/16 05:10 PT 10.7 SECONDS (9.6-11.2) 11/29/16 14:50 INR 1.03 (0.92-1.08) 11/29/16 14:50 APTT 30.8 SECONDS (23.3-32.5) 11/29/16 14:50 Sodium 138 mmol/l (132-148) 12/03/16 06:00 Potassium 4.1 MMOL/L (3.6-5.0) 12/03/16 06:00 Chloride 97 mmol/L (98-107) L 12/03/16 06:00 Carbon Dioxide 27 mmol/L (22-30) 12/03/16 06:00 Anion Gap 18 (10-20) 12/03/16 06:00 BUN 18 mg/dl (9-20) 12/03/16 06:00 Creatinine 0.9 mg/dL (0.8-1.5) 12/03/16 06:00 Est GFR ( Amer) > 60 12/03/16 06:00 Est GFR (Non-Af Amer) > 60 12/03/16 06:00 Random Glucose 133 mg/dL (75-110) H 12/03/16 06:00 Calcium 9.3 mg/dL (8.4-10.2) 12/03/16 06:00 Total Bilirubin 0.8 mg/dl (0.2-1.3) 11/29/16 14:50 AST 29 U/L (17-59) 11/29/16 14:50 ALT 32 U/L (21-72) 11/29/16 14:50 Alkaline Phosphatase 71 U/L (38-126) 11/29/16 14:50 Total Protein 7.6 G/DL (6.3-8.2) 11/29/16 14:50 Albumin 4.5 g/dL (3.5-5.0) 11/29/16 14:50 Globulin 3.1 gm/dL (2.2-3.9) 11/29/16 14:50 Albumin/Globulin Ratio 1.5 (1.0-2.1) 11/29/16 14:50 - Hospital Course Hospital Course: This is a 41 y/o male admitted for intractable chronic low back pain. Noted to have herniated discs multilevel and atrophy of lower extremity muscles charisma calf muscles. Also has hx of HTN He had L3L5 laminectomy with fusion. L3 - L5 with fusion He did very well and was able to ambulate with no assistance and minimal pain. He was kept on prn pain meds. He was kept in the hospital for few days due to excessive drainage. He was discharged on 12/05/16 in stable condition and advised to follow up with Dr metzger and get outpatient PT. He was given pain meds on discharge. Discharge Exam - Head Exam Head Exam: NORMAL INSPECTION - Eye Exam Eye Exam: Normal appearance - Respiratory Exam Respiratory Exam: NORMAL BREATHING PATTERN - Cardiovascular Exam Cardiovascular Exam: REGULAR RHYTHM - GI/Abdominal Exam GI & Abdominal Exam: Normal Bowel Sounds - Neurological Exam Neurological exam: CN II-XII Intact, Oriented x3 Discharge Plan - Follow Up Plan Condition: GOOD Disposition: HOME/ ROUTINE Additional Instructions: Discharge patient in stable condition will follow up with Dr Metzger 1 to 2 weeks after discharge. Rx for phys therapy
--- NOTE | 2016-12-05 10:01 | CP.PCM.PCO ---
Assessment/Plan - Assessment/Plan Assessment (Free Text): Patient seen and examined. POD #5 s/p lumbar laminectomy with instrumental fusion Pt doing well, oob ambulatory. VSS RAFIA drain with minimal drainage. Discussd with DR Wiley, pt for dc today RX for decadron and percocet given to patient till follow up with Dr Travis in Clinic. RAFIA drain removed with no complications. Matheus clean dry and intact - Problems Patient Problems: Problem List (Active/Current) Problem Status Onset Code Atrophy of calf muscles on right Acute M62.561 Hypertension Acute I10 Intractable low back pain Acute M54.5
[2016-12-05] MEDS: ceFAZolin 1 GM in Sodium Chloride 0.9% 100 ML IVPB SCH (10:29)
== END 2016-12-05 10:45 | disposition home or self-care (01) | DRG 460 ==
LOC: H.ER 08:31 → H.MEDSURG1 10:15 → H.TEL 11-30 13:40
PROVIDERS: ADMIT Family Medicine; ATTEND Family Medicine
PROC: 01NB0ZZ Release Lumbar Nerve, Open Approach (ICD-10-PCS; 2016-11-30)
PROC: 0SG10Z1 (ICD-10-PCS; principal; 2016-11-30 07:45)
DX: M47.26 Other spondylosis with radiculopathy, lumbar region (principal); G83.4 Cauda equina syndrome; G89.29 Other chronic pain; I10 Essential (primary) hypertension; Z79.899 Other long term (current) drug therapy

== ENCOUNTER 2016-12-14 10:58 | Inpatient (IN) | payer BC ==
[2016-12-14 11:00] VITALS: BMI 31.6
--- NOTE | 2016-12-14 11:56 | ED PDOC ---
HPI: General Adult Time Seen by Provider: 12/14/16 11:23 Chief Complaint (Nursing): Abnormal Skin Integrity Chief Complaint (Provider): surgical site infection History Per: Patient History/Exam Limitations: no limitations Additional Complaint(s): 41yo male was recently discharged after having decompressive lumbar laminectomy. Patient states fluid leakage from surgical site has been persistent and "fruit punch" initially then becoming clearish. States he has been changing the dressing daily. He had chills yesterday but no fever. Prior to surgery pain was radiating down the right leg, it improved after surgery but is now severely worse again. [place] were removed from surgical site by Dr. Travis at 1030 this morning. Past Medical History Reviewed: Historical Data, Nursing Documentation, Vital Signs Vital Signs: Last Vital Signs Temp 98.1 F 12/14/16 11:00 Pulse 74 12/14/16 11:00 Resp 19 12/14/16 11:00 BP 106/64 12/14/16 11:00 Pulse Ox 98 12/14/16 12:24 - Medical History PMH: HTN - Family History Family History: States: Unknown Family Hx - Home Medications Home Medications: Ambulatory Orders Medication Instructions Recorded Lisinopril [Zestril] 10 mg PO DAILY 11/29/16 - Allergies Allergies/Adverse Reactions: Allergies Allergy/AdvReac Type Severity Reaction Status Date / Time No Known Allergies Allergy Verified 12/14/16 11:08 Review of Systems ROS Statement: Except As Marked, All Systems Reviewed And Found Negative Constitutional: Positive for: Chills. Negative for: Fever Musculoskeletal: Positive for: Back Pain Physical Exam - Reviewed Nursing Documentation Reviewed: Yes Vital Signs Reviewed: Yes - Physical Exam Appears: Positive for: Well, Non-toxic, No Acute Distress Head Exam: Positive for: ATRAUMATIC, NORMAL INSPECTION, NORMOCEPHALIC Skin: Positive for: Warm, Dry Eye Exam: Positive for: EOMI, Normal appearance, PERRL ENT: Positive for: Normal ENT Inspection Neck: Positive for: Normal, Painless ROM Cardiovascular/Chest: Positive for: Regular Rate, Rhythm Respiratory: Positive for: CNT, Normal Breath Sounds Gastrointestinal/Abdominal: Positive for: Normal Exam, Bowel Sounds, Soft Back: Positive for: Other (longtitudinal wound in the lumbar area with mild erythema and small area of dehiscence. evidence of collections of serosanguinous fluid expressible and leaking spontaneously. mild tenderness around the wound.) Extremity: Positive for: Normal ROM Neurologic/Psych: Positive for: Alert, Oriented (x3) - Laboratory Results Result Diagrams: 12/14/16 12:00 12/14/16 12:00 - ECG O2 Sat by Pulse Oximetry: 98 (RA) Pulse Ox Interpretation: Normal Medical Decision Making Medical Decision Makin Dr. Travis's surgical PA at bedside, who obtained cultures. Dr. Travis's director surgical discussed case with Dr. Faustin. CBC, CMP, ESR, CRP, Cultures (aerobic, anaerobic, gram stain) ordered. MRI Lumbar SPine w/ & w/o contrast ordered. EKg ordered. Ancef ordered. infectious disease consult ordered. case d/w Dr. Travis - labs ordered as requested. Case d/w Dr. faustin for admission. Disposition - Clinical Impression Clinical Impression: Wound dehiscence - Patient ED Disposition Is Patient to be Admitted: Yes Doctor Will See Patient In The: Hospital - Disposition Disposition: Transfer of Care Disposition Time: 12:30 Condition: STABLE - Pt Status Changed To: Hospital Disposition Of: Inpatient - Admit Certification Admit to Inpatient:: After my assessment, the patient will require hospitalization for at least two midnights. This is because of the severity of symptoms shown, intensity of services needed, and/or the medical risk in this patient being treated as an outpatient. - POA Present On Arrival: Surgical Site Infection Additional Comments - Additional Comments Additional Comments: Scribe Attestation: Documented by Gutierrez Galeana acting as a scribe for Yuri Lares MD. Provider Scribe Attestation: All medical record entries made by the Scribe were at my direction and personally dictated by me. I have reviewed the chart and agree that the record accurately reflects my personal performance of the history, physical exam, medical decision making, and the department course for this patient. I have also personally directed, reviewed, and agree with the discharge instructions and disposition.
--- NOTE | 2016-12-14 12:00 | RAD ---
HISTORY: for admission COMPARISON: No prior. TECHNIQUE: Chest PA and lateral FINDINGS: LUNGS: No active pulmonary disease. Tiny nodular densities overlying the right and left posterior 8th ribs felt to represent mild bilateral nipple shadow artifact. PLEURA: No significant pleural effusion identified. No pneumothorax apparent. CARDIOVASCULAR: Normal. OSSEOUS STRUCTURES: Mild multilevel degenerative spondylosis of the thoracic spine. Mild degenerative changes right acromioclavicular joint. VISUALIZED UPPER ABDOMEN: Normal. OTHER FINDINGS: None. IMPRESSION: No active disease.
[2016-12-14] MEDS ORDERED: ceFAZolin 1 GM in Sodium Chloride 0.9% 100 ML IVPB STA (12:16)
[2016-12-14 12:23] LABS: BASO % 0.5 % (0.0-2.0); EOS # 0.3 K/uL (0.0-0.7); EOS % 2.8 % (0.0-4.0); LYMPH # 1.8 K/uL (1.0-4.3); LYMPH % 18.5 % (20.0-40.0); MEAN CELL VOLUME 89.3 fl (80.0-94.0); MEAN CORPUSCULAR HGB CONC 33.7 g/dL (33.0-37.0); MEAN PLATELET VOLUME 7.8 fl (7.2-11.7); MONO # 1.3 K/uL (0.0-0.8); MONO % 12.6 % (0.0-10.0); NEUT # 6.5 K/uL (1.8-7.0); NEUT % 65.6 % (50.0-75.0); NRBC % 0.1 % (0.0-0.0); RED CELL DISTRIBUTION WIDTH 15.2 % (11.5-14.5); WHITE BLOOD COUNT 9.9 K/uL (4.8-10.8)
[2016-12-14 12:40] LABS: ALB/GLOB RATIO 1.1 (1.0-2.1); ALKALINE PHOSPHATASE 103 U/L (38-126); ALT/SGPT 43 U/L (21-72); AST/SGOT 42 U/L (17-59); BILIRUBIN,TOTAL 0.6 mg/dl (0.2-1.3); BLOOD UREA NITROGEN 20 mg/dl (9-20); CALCIUM 9.5 mg/dL (8.4-10.2); CARBON DIOXIDE 22 mmol/L (22-30); CHLORIDE 100 mmol/L (98-107); GFR AFRICAN-AMERICAN > 60; GLUCOSE,RANDOM 96 mg/dL (75-110); POTASSIUM 4.3 MMOL/L (3.6-5.0); SODIUM 137 mmol/l (132-148); TOTAL PROTEIN 7.5 G/DL (6.3-8.2)
[2016-12-14] MEDS ORDERED: Gadodiamide 287 MG/ML VIAL (15ML) IV ONE (12:53)
--- NOTE | 2016-12-14 13:23 | CP.PCM.HP ---
<Rae Beal - Last Filed: 12/15/16 08:37> History of Present Illness - History of Present Illness History of Present Illness: 41yo M with PMHx HTN and back pain s/p L3-L5 laminectomy with fusion admitted for incision site drainage. Last d/c 12/05/16 in stable condition and advised to follow up with Dr metzger and get outpatient PT. PMHx: as above SHx: L3-L5 laminectomy Allergies: NKDA Social Hx: denies x3 FH: NC evaluated with attending Present on Admission - Present on Admission Any Indicators Present on Admission: No Review of Systems - Constitutional Constitutional: absent: Chills, Fever - Cardiovascular Cardiovascular: absent: Chest Pain - Respiratory Respiratory: absent: Dyspnea - Gastrointestinal Gastrointestinal: absent: Abdominal Pain, Diarrhea, Nausea, Vomiting - Genitourinary Genitourinary: absent: Dysuria, Hematuria - Musculoskeletal Musculoskeletal: absent: Back Pain Additional comments: drainage from surgical incision site - Neurological Neurological: absent: Headaches Past Patient History - Past Medical History & Family History Past Medical History?: Yes - Past Social History Smoking Status: Never Smoked - CARDIAC Hx Hypertension: Yes - MUSCULOSKELETAL/RHEUMATOLOGICAL Hx Falls: No - PSYCHIATRIC Hx Substance Use: No - SURGICAL HISTORY Hx Surgeries: Yes Other/Comment: laminectomy - ANESTHESIA Hx Anesthesia: No Hx Anesthesia Reactions: No Hx Malignant Hyperthermia: No Meds Allergies/Adverse Reactions: Allergies Allergy/AdvReac Type Severity Reaction Status Date / Time No Known Allergies Allergy Verified 12/14/16 11:08 Physical Exam - Head Exam Head Exam: ATRAUMATIC, NORMAL INSPECTION - Eye Exam Eye Exam: Normal appearance - ENT Exam ENT Exam: Mucous Membranes Moist - Neck Exam Neck exam: Positive for: Normal Inspection - Respiratory Exam Respiratory Exam: Clear to Auscultation Bilateral, NORMAL BREATHING PATTERN - Cardiovascular Exam Cardiovascular Exam: REGULAR RHYTHM - GI/Abdominal Exam GI & Abdominal Exam: Normal Bowel Sounds, Soft - Back Exam Additional comments: serous drainage from back dressing - Neurological Exam Neurological exam: Alert, Oriented x3 - Skin Skin Exam: Dry, Warm Results - Vital Signs Recent Vital Signs: Last Vital Signs Temp 98.1 F 12/14/16 11:00 Pulse 74 12/14/16 11:00 Resp 19 12/14/16 11:00 BP 106/64 12/14/16 11:00 Pulse Ox 98 12/14/16 12:54 - Labs Result Diagrams: 12/15/16 02:50 12/15/16 02:50 Assessment & Plan - Assessment and Plan (Free Text) Assessment: 41yo M with PMHx HTN s/p laminectomy and fusion L3-L5 admitted for drainage of incision site s/p laminectomy and fusion L3-L5 with drainage -pain control -zofran -NPO -NS on board, appreciate input. washout today -ID on board, appreciate input. -IV abx -medically cleared for surgery -PT/OT HTN -c/w home med DVT ppx -SCDs Decision To Admit - Pt Status Changed To: Hospital Disposition Of: Inpatient - Admit Certification Admit to Inpatient:: After my assessment, the patient will require hospitalization for at least two midnights. This is because of the severity of symptoms shown, intensity of services needed, and/or the medical risk in this patient being treated as an outpatient. - . Bed Request Type: Telemetry Admitting Physician: Enoc Wiley <Enoc Wiley - Last Filed: 12/15/16 08:54> Results - Vital Signs Recent Vital Signs: Last Vital Signs Temp 97.9 F 12/15/16 08:23 Pulse 74 12/15/16 08:23 Resp 20 12/15/16 08:23 BP 101/59 L 12/15/16 08:23 Pulse Ox 97 12/15/16 08:23 - Labs Result Diagrams: 12/15/16 02:50 12/15/16 02:50 Labs: Laboratory Results - last 24 hr 12/14/16 12/14/16 12/14/16 15:15 16:05 18:00 WBC RBC Hgb Hct MCV MCH MCHC RDW Plt Count Sodium Potassium Chloride Carbon Dioxide Anion Gap BUN Creatinine Est GFR ( Amer) Est GFR (Non-Af Amer) Random Glucose Calcium Urine Color Irina Irina Urine Clarity Clear Slighty-cloudy Urine pH 5.0 5.0 Ur Specific [place] 1.029 1.030 Urine Protein Negative 30 Urine Glucose (UA) Neg Neg Urine Ketones Negative Negative Urine Blood Negative Negative Urine Nitrate Negative Negative Urine Bilirubin Negative Negative Urine Urobilinogen 0.2-1.0 0.2-1.0 Ur Leukocyte Esterase Neg Neg Urine RBC (Auto) 2 4 H Urine Microscopic WBC 1 3 Ur Squamous Epith Cells < 1 1 Urine Bacteria Rare Rare Blood Type A POSITIVE Antibody Screen Negative BBK History Checked No verified bt 12/15/16 12/15/16 02:50 02:50 WBC 8.7 RBC 3.98 L Hgb 12.1 Hct 35.5 MCV 89.1 MCH 30.3 MCHC 34.0 RDW 14.8 H Plt Count 326 Sodium 137 Potassium 4.4 Chloride 99 Carbon Dioxide 28 Anion Gap 14 BUN 18 Creatinine 0.8 Est GFR ( Amer) > 60 Est GFR (Non-Af Amer) > 60 Random Glucose 119 H Calcium 9.3 Urine Color Urine Clarity Urine pH Ur Specific [place] Urine Protein Urine Glucose (UA) Urine Ketones Urine Blood Urine Nitrate Urine Bilirubin Urine Urobilinogen Ur Leukocyte Esterase Urine RBC (Auto) Urine Microscopic WBC Ur Squamous Epith Cells Urine Bacteria Blood Type Antibody Screen BBK History Checked Assessment & Plan - Assessment and Plan (Free Text) Plan: I was with Dr Mcbride and examined patient . Discussed labs and plans of car. Enoc Wiley M.D.
[2016-12-14] MEDS ORDERED: Oxycodone/Acetaminophen 5/325 mg Tab ONE (14:18)
[2016-12-14] MEDS: Oxycodone/Acetaminophen 5/325 mg Tab PO PRN (14:29)
--- NOTE | 2016-12-14 15:02 | CP.PCM.CON ---
History of Present Illness - History of Present Illness History of Present Illness: 41 year old male presents to ER with ongoing wound drainage x 10 day's,chill's x 1 day,pt s/p L3-5 Decompressive Lumbar Laminectomy, Instrumented Pedicle Screw Fixation 11/30/[address] Travis,pt hospitalized 5 day's post procedure due to persistant drainage from RAFIA's/serosanguinos,no fever,changing dressing daily at home,+ pressure to mid incision,felt a pop and increased drainage from mid incision post/brown,seen in the clinic today for suspected wound infection and sent to the ER by Dr. Travis,+ residual LBP radiating RLE some improvement since surgery and residual paresthesias,no fever at home, pelvic paresthesias,trauma, bowel or bladder incontinance. Review of Systems - Review of Systems Systems not reviewed;Unavailable: Acuity of Condition - Constitutional Additional comments: chill's x 1 day - Musculoskeletal Musculoskeletal: Radiating Pain into Limb - Integumentary Integumentary: As Per HPI - Neurological Neurological: As Per HPI Past Patient History - Past Medical History & Family History Past Medical History?: Yes - Past Social History Smoking Status: Never Smoked - CARDIAC Hx Hypertension: Yes - MUSCULOSKELETAL/RHEUMATOLOGICAL Hx Falls: No - PSYCHIATRIC Hx Substance Use: No - SURGICAL HISTORY Hx Surgeries: Yes Other/Comment: laminectomy - ANESTHESIA Hx Anesthesia: No Hx Anesthesia Reactions: No Hx Malignant Hyperthermia: No Meds Allergies/Adverse Reactions: Allergies Allergy/AdvReac Type Severity Reaction Status Date / Time No Known Allergies Allergy Verified 12/14/16 11:08 - Medications Medications: Current Medications Morphine Sulfate (Morphine) 4 mg IVP Q4 PRN PRN Reason: Pain, severe (8-10) Last Admin: 12/14/16 14:31 Dose: 4 mg Oxycodone/Acetaminophen (Percocet 5/325 Mg Tab) 2 tab PO Q4 PRN PRN Reason: Pain, moderate (4-7) Stop: 12/17/16 13:06 Last Admin: 12/14/16 14:29 Dose: 2 tab Physical Exam - Constitutional Appears: Well, Non-toxic, No Acute Distress - Head Exam Head Exam: ATRAUMATIC, NORMAL INSPECTION, NORMOCEPHALIC - Eye Exam Eye Exam: EOMI, Normal appearance, PERRL Pupil Exam: NORMAL ACCOMODATION - ENT Exam ENT Exam: Mucous Membranes Moist - Neck Exam Neck exam: Positive for: Normal Inspection - Respiratory Exam Respiratory Exam: Clear to Auscultation Bilateral - Cardiovascular Exam Cardiovascular Exam: REGULAR RHYTHM, +S1, +S2 - GI/Abdominal Exam GI & Abdominal Exam: Normal Bowel Sounds, Soft - Rectal Exam Rectal Exam: Deferred - Extremities Exam Extremities exam: Positive for: normal inspection, pedal pulses present - Back Exam Additional comments: mid laminectomy incision small opening,copious amt's of brown tinged serosanguinous drainage expressed from wound,mild incisional/marginal erythema without warmth,wound cultures obtained,sterile dressing applied,+ incisional tenderness. - Neurological Exam Neurological exam: Alert, Oriented x3 Additional comments: ACEVEDO x 4 antigravity with good strength,residual RLE weakness and paresthesias - Psychiatric Exam Psychiatric exam: Normal Affect, Normal Mood - Skin Additional comments: + incisional erythema Results - Vital Signs Recent Vital Signs: Last Vital Signs Temp 98.1 F 12/14/16 11:00 Pulse 74 12/14/16 11:00 Resp 19 12/14/16 11:00 BP 106/64 12/14/16 11:00 Pulse Ox 98 12/14/16 12:54 - Labs Result Diagrams: 12/14/16 12:00 12/14/16 12:00 Assessment & Plan - Assessment and Plan (Free Text) Assessment: 41 yo male s/p L3-L5 Decompressive Laminectomy and Instrumented Fusion with suspected seroma,mid wound dehiscence and infection,neurologically stable,neuro exam unchanged Plan: Pt admitted,IV abx started,NPO at [place] for washout tomorrow with Dr. Travis,I.D consult,possible PICC line and prolonged abx,wound cultures obtained,BC drawn, will f/u ESR and CRP and MRI results of Lumbar spine,all d/w Dr. Travis
--- NOTE | 2016-12-14 16:44 | MRI ---
PROCEDURE: MRI lumbar spine dated 12/14/2016. HISTORY: Status post-laminectomy. evidence infection per Dr. Travis COMPARISON: No prior study available comparison at this institution. TECHNIQUE: Multiecho multiplanar sequences were performed through the lumbar spine before and following intravenous injection of approximately 19 cc of Omniscan contrast material. FINDINGS: The current study reveals multilevel bilateral posterior fixation accomplished by the presence of bilateral short segment Moore rods attached to the right and left pedicles of the L3, L4 and L5 segments. The posterior fixation hardware does result in surrounding susceptibility artifact. The. There appears to be are multilevel bilateral laminectomy as well extending from L3-L4 and L4-L5 levels. Extensive postoperative changes within the paraspinal soft tissues. These changes extend from approximately the L1-L2 through L5-S1 levels on involving the superficial subcutaneous tissues and narrow/taper on as they extend more deeply from approximately the L3-L4 through the L5-S1 levels. There is also what appears to represent the triangular-shaped fluid collection within the posterior soft tissues extending from approximately the upper L3 level through the upper L5 level. Fluid extends to the superficial soft tissues along upper margin of this collection at approximately L3 level. This collection measures approximately 7.3 cm cc x 3.175 cm AP x 2.5 mm T at its widest point. Irregular enhancement is seen peripheral margins of this collection and more diffusely within the more superficial soft tissues. . The fluid most likely represent some combination of hemorrhage in various stages of breakdown, serum an edema fluid however the possibility of superinfection must be considered. CSF leak would be less likely though not completely excluded The soft tissue enhancement of the musculature and subcutaneous tissues similarly likely represents combination of postoperative sequela and development of early granulation tissue though again superimposed infection suspected. Multilevel degenerative spondylosis most significantly affecting the L3-L4, L4-L5 and L5-S1 levels. Changes include varying degrees of disc desiccation and disc space narrowing with are cortical endplate irregularity and Type 2 discogenic sclerosis. . Small broad-based disc bulge ridge complexes are present at each level. Facet joints are hypertrophic at each of these levels as well with bilateral foraminal stenosis L5-S1 level with compression of the exiting foraminal L5 nerve roots. The exit foramina at the L4-L5 level poorly seen particularly on the right side of the exit foramina are probably mildly narrowed. Exit foramina at the L3-L4 level appear adequate. Impression: Status post posterior fixation accomplished with short segment Moore rods attached to the pedicles of L3, L4-L5 segments. There also bilateral laminectomy defects seen at the L3-L4 and L4-L5 levels. extensive postoperative changes within the paraspinal soft the tissues associated with a fluid collection extending from the posterior margin of the spinal canal into the paraspinal soft tissues from approximately the L3-L4 through L5-S1 levels. . This collection measures approximately 7.3 cm cc x 3.175 cm AP x 2.5 mm T at its widest point. . There is peripheral enhancement along the margins of the collection and extensive enhancement within the paraspinal soft tissues. Findings are consistent with postoperative sequela as above however superimposed infection suspected. CSF leak less likely though not completely excluded. These findings discussed with emergency room physician Dr. Lares at approximately 4 30 p.m. with written down and read back verification.
[2016-12-14] MEDS ORDERED: Vancomycin 1 g Inj ONE (16:50)
[2016-12-14 16:56] LABS: RBC URINE 2 /hpf (0-3); URINE BACTERIA RARE (<OCC); URINE BILIRUBIN NEGATIVE (NEGATIVE); URINE BLOOD NEGATIVE (NEGATIVE); URINE COLOR AMBER (YELLOW); URINE GLUCOSE (UA) NEG (Normal); URINE KETONE NEGATIVE (NEGATIVE); URINE LEUKOCYTE ESTERASE NEG Leu/uL (Negative); URINE PROTEIN NEGATIVE (NEGATIVE); URINE UROBILINOGEN 0.2-1.0 mg/dL (0.2-1.0); WBC URINE 1 /hpf (0-5)
[2016-12-14 18:18] LABS: RBC URINE 4 /hpf (0-3); URINE BACTERIA RARE (<OCC); URINE BILIRUBIN NEGATIVE (NEGATIVE); URINE BLOOD NEGATIVE (NEGATIVE); URINE COLOR AMBER (YELLOW); URINE GLUCOSE (UA) NEG (Normal); URINE KETONE NEGATIVE (NEGATIVE); URINE LEUKOCYTE ESTERASE NEG Leu/uL (Negative); URINE PROTEIN 30 mg/dL (NEGATIVE); URINE UROBILINOGEN 0.2-1.0 mg/dL (0.2-1.0); WBC URINE 3 /hpf (0-5)
--- NOTE | 2016-12-14 18:23 | CP.PCM.PN ---
Subjective - Date & Time of Evaluation Date of Evaluation: 12/14/16 Time of Evaluation: 18:02 - Subjective Subjective: I D NOTE HAVE REVIEWED CHART STARTED PATIENT ON APPROPRIATE COVERAGE WE AWAIT CULTURES VANCOMYCIN/ROCEPHEN Objective - Vital Signs/Intake and Output Vital Signs (last 24 hours): Temp Pulse Resp BP Pulse Ox 98.3 F 76 20 98/63 L 98 12/14/16 17:43 12/14/16 17:43 12/14/16 17:43 12/14/16 17:43 12/14/16 17:43 - Medications Medications: Current Medications Vancomycin HCl 1 gm/ Sodium (Chloride) 250 mls @ 166.667 mls/hr IVPB ONCE ONE Stop: 12/14/16 18:20 Last Admin: 12/14/16 17:00 Dose: 166.667 mls/hr Ceftriaxone Sodium 2 gm/ (Sodium Chloride) 100 mls @ 100 mls/hr IVPB DAILY [facility] Vancomycin HCl 1 gm/ Sodium (Chloride) 250 mls @ 166.667 mls/hr IVPB Q12 [facility] Morphine Sulfate (Morphine) 4 mg IVP Q4 PRN PRN Reason: Pain, severe (8-10) Last Admin: 12/14/16 14:31 Dose: 4 mg Oxycodone/Acetaminophen (Percocet 5/325 Mg Tab) 2 tab PO Q4 PRN PRN Reason: Pain, moderate (4-7) Stop: 12/17/16 13:06 Last Admin: 12/14/16 14:29 Dose: 2 tab
[2016-12-14] MEDS ORDERED: Dextrose 5%/0.45% NS 1,000 ML IV SCH (23:30)
[2016-12-15 06:52] LABS: HEMATOCRIT 35.5 % (35.0-51.0); MEAN CELL VOLUME 89.1 fl (80.0-94.0); MEAN CORPUSCULAR HEMOGLOBIN 30.3 pg (27.0-31.0); RED CELL DISTRIBUTION WIDTH 14.8 % (11.5-14.5); WHITE BLOOD COUNT 8.7 K/uL (4.8-10.8)
[2016-12-15 07:03] LABS: BLOOD UREA NITROGEN 18 mg/dl (9-20); CALCIUM 9.3 mg/dL (8.4-10.2); CARBON DIOXIDE 28 mmol/L (22-30); CHLORIDE 99 mmol/L (98-107); GFR AFRICAN-AMERICAN > 60; GLUCOSE,RANDOM 119 mg/dL (75-110); POTASSIUM 4.4 MMOL/L (3.6-5.0); SODIUM 137 mmol/l (132-148)
[2016-12-15] MEDS ORDERED: Absorbable Gelatin Sponge Size 100 ONE ×2 (07:40→07:41)
[2016-12-15] MEDS ORDERED: Bupivacaine 0.5% Inj(30mL) ONE (07:40)
[2016-12-15] MEDS ORDERED: Lidocaine 2% w Epi 1:100,000 Inj IJ ONE (07:40)
[2016-12-15] MEDS ORDERED: Propofol 10 mg/ml Inj (20 ML) ONE (08:35)
[2016-12-15] MEDS ORDERED: Succinylcholine 200 mg/10 ml Inj IV ONE (08:35)
[2016-12-15] MEDS ORDERED: Rocuronium 10 mg/ml (5 ml) ONE (08:35)
[2016-12-15] MEDS ORDERED: Midazolam 2 MG/2 ML VIAL ONE (08:35)
[2016-12-15] MEDS ORDERED: Lidocaine 4% (Laryng-O-Jet) Kit MM ONE (08:35)
[2016-12-15] MEDS: cefTRIAXone 2 GM in Sodium Chloride 0.9% 100 ML IVPB SCH (08:39)
--- NOTE | 2016-12-15 08:45 | CP.PCM.PN ---
<Rae Beal - Last Filed: 12/15/16 08:45> Subjective - Date & Time of Evaluation Date of Evaluation: 12/15/16 Time of Evaluation: 08:44 - Subjective Subjective: evaluated with attending. no overnight events. NPO. pain well controlled. Objective - Vital Signs/Intake and Output Vital Signs (last 24 hours): Temp Pulse Resp BP Pulse Ox 97.9 F 74 20 101/59 L 97 12/15/16 08:23 12/15/16 08:23 12/15/16 08:23 12/15/16 08:23 12/15/16 08:23 Intake and Output: 12/15/16 12/15/16 06:59 18:59 Intake Total 1210 Balance 1210 - Medications Medications: Current Medications Ceftriaxone Sodium 2 gm/ (Sodium Chloride) 100 mls @ 100 mls/hr IVPB DAILY [facility] Last Admin: 12/15/16 08:39 Dose: 100 mls/hr Vancomycin HCl 1 gm/ Sodium (Chloride) 250 mls @ 166.667 mls/hr IVPB Q12 [facility] Last Admin: 12/14/16 22:00 Dose: 166.667 mls/hr Dextrose/Sodium Chloride (Dextrose 5%/0.45% Ns 1000 Ml) 1,000 mls @ 80 mls/hr IV .[id number] [facility] Stop: 12/15/16 23:31 Last Admin: 12/14/16 23:57 Dose: 80 mls/hr Morphine Sulfate (Morphine) 4 mg IVP Q4 PRN PRN Reason: Pain, severe (8-10) Last Admin: 12/15/16 08:36 Dose: 4 mg Oxycodone/Acetaminophen (Percocet 5/325 Mg Tab) 2 tab PO Q4 PRN PRN Reason: Pain, moderate (4-7) Stop: 12/17/16 13:06 Last Admin: 12/14/16 14:29 Dose: 2 tab - Labs Labs: 12/15/16 02:50 12/15/16 02:50 - Constitutional Appears: Non-toxic, No Acute Distress - Head Exam Head Exam: NORMAL INSPECTION - Eye Exam Eye Exam: Normal appearance - ENT Exam ENT Exam: Mucous Membranes Moist - Neck Exam Neck Exam: Normal Inspection - Respiratory Exam Respiratory Exam: Clear to Ausculation Bilateral, NORMAL BREATHING PATTERN - Cardiovascular Exam Cardiovascular Exam: REGULAR RHYTHM - GI/Abdominal Exam GI & Abdominal Exam: Soft - Back Exam Additional comments: serous drainage from dressing - Neurological Exam Neurological Exam: Alert, Oriented x3 - Skin Skin Exam: Dry, Warm Assessment and Plan - Assessment and Plan (Free Text) Assessment: 41yo M with PMHx HTN s/p laminectomy and fusion L3-L5 admitted for drainage of incision site s/p laminectomy and fusion L3-L5 with drainage -pain control -zofran -NPO -NS on board, appreciate input. washout today -ID on board, appreciate input. -IV abx -medically cleared for surgery -PT/OT -FU wound cx and blood cx HTN -c/w home med DVT ppx -SCDs <Enoc Wiley - Last Filed: 12/15/16 08:57> Objective - Vital Signs/Intake and Output Vital Signs (last 24 hours): Temp Pulse Resp BP Pulse Ox 97.9 F 74 20 101/59 L 97 12/15/16 08:23 12/15/16 08:23 12/15/16 08:23 12/15/16 08:23 12/15/16 08:23 Intake and Output: 12/15/16 12/15/16 06:59 18:59 Intake Total 1210 Balance 1210 - Medications Medications: Current Medications Ceftriaxone Sodium 2 gm/ (Sodium Chloride) 100 mls @ 100 mls/hr IVPB DAILY [facility] Last Admin: 12/15/16 08:39 Dose: 100 mls/hr Vancomycin HCl 1 gm/ Sodium (Chloride) 250 mls @ 166.667 mls/hr IVPB Q12 [facility] Last Admin: 12/14/16 22:00 Dose: 166.667 mls/hr Dextrose/Sodium Chloride (Dextrose 5%/0.45% Ns 1000 Ml) 1,000 mls @ 80 mls/hr IV .[id number] [facility] Stop: 12/15/16 23:31 Last Admin: 12/14/16 23:57 Dose: 80 mls/hr Morphine Sulfate (Morphine) 4 mg IVP Q4 PRN PRN Reason: Pain, severe (8-10) Last Admin: 12/15/16 08:36 Dose: 4 mg Ondansetron HCl (Zofran Inj) 4 mg IVP Q6 PRN PRN Reason: Nausea/Vomiting Oxycodone/Acetaminophen (Percocet 5/325 Mg Tab) 2 tab PO Q4 PRN PRN Reason: Pain, moderate (4-7) Stop: 12/17/16 13:06 Last Admin: 12/14/16 14:29 Dose: 2 tab - Labs Labs: 12/15/16 02:50 12/15/16 02:50 Assessment and Plan - Assessment and Plan (Free Text) Plan: I was present during evaluation and reviewed labs. I discussed with Dr Mcbride and noted patient to be medically stable for surgery Enoc Wiley M.D.
[2016-12-15] MEDS ORDERED: Lactated Ringer's 1,000 ML IV ONE (09:55)
[2016-12-15] MEDS ORDERED: Bacitracin 500 Units/gm Oint Foilpak UD TOP ONE (10:30)
[2016-12-15] MEDS ORDERED: Sevoflurane - Inhalation Anesthetic Liq (250 ml) ONE (10:46)
[2016-12-15] MEDS ORDERED: HEMOSTATIC MATRIX 10 ML DIS.NEEDLE TOP ONE (11:00)
[2016-12-15] MEDS ORDERED: Neostigmine Methylsulfate 3mg/3ml Syringe IV ONE (11:05)
[2016-12-15] MEDS ORDERED: Bacitracin Ointment 30 GM TUBE ONE (11:07)
[2016-12-15] MEDS ORDERED: Bacitracin OINT 15GM TOP ONE (11:20)
[2016-12-15] MEDS ORDERED: HYDROmorphone 0.5 mg/0.5 ml ISec ONE (11:26)
[2016-12-15] MEDS: HYDROmorphone 0.5 mg/0.5 ml ISec IVP PRN ×6 (11:30→12:55)
--- NOTE | 2016-12-15 11:37 | PCM.SURG1 ---
Surgeon's Initial Post Op Note - Surgeon's Notes Surgeon: Dr. Angy AUGUSTE [employer] Attendant: Antonietta Bond DPM PGY-1 Type of Anesthesia: General Endo Pre-Operative Diagnosis: lumbar wound infection Operative Findings: see dictation Post-Operative Diagnosis: same Operation Performed: re-exploration of lumbar laminectomy and fusion and debridement with washout Specimen/Specimens Removed: deep tissue culture Estimated Blood Loss: EBL {In ML}: 50 Blood Products Given: N/A Drains Used: Tano [place] Post-Op Condition: Good Date of Surgery/Procedure: 12/15/16 Time of Surgery/Procedure: 11:38
--- NOTE | 2016-12-15 13:27 | OP ---
PROCEDURE DATE: 12/15/2016 PREOPERATIVE DIAGNOSIS: Lumbar laminectomy wound infection. POSTOPERATIVE DIAGNOSIS: Lumbar laminectomy wound infection. PROCEDURE: Reexploration of L2-L5 lumbar laminectomy, instrumentation, debridement of the wound and washout. SURGEON: Dr. Travis. ROOM SERVICE CLERK: Eva Ingram, who is a physician clinical laboratory assistant. Eva Antoine stayed throughout the case from the beginning to the end, helped me perform the surgery. DESCRIPTION OF PROCEDURE: The patient was brought to the operating room, administered general endotracheal anesthesia. Back of the lumbar area thoroughly prepped and draped in standard sterile manner. The previously made skin incision has been noted. It has been opened. There was a purulent material found to be coming out subcutaneous tissue. All this has been sent for histopathologic examination and cultures. Further opening of the area has been done. Exposure has been up to the instrumentation area. Deep retractors have been applied. There were pockets of fluid noted, sent for cultures. The tissues were found to be unhealthy and they all have been debrided. Wound has been thoroughly irrigated up to the epidural space. Washing has been done with a Pulsavac with antibiotic solution. After that, area has been found to be devoid of anymore infected material. Tano drain placed in the wound, brought out through separate stab next to skin incision. Muscles and fascia closed with 1 Vicryl. As mentioned before, the patient has very tissue; however , a few suture could be placed. Subcutaneous tissue closed by 3-0 Vicryl. Skin has been closed using 3-0 silk. The patient tolerated the procedure. After procedure, mobilized to the recovery room in stable condition. Dago Travis MD cc: [id number] TT: 12/15/2016 13:27:22 karina HANNAH
[2016-12-15] MEDS: Oxycodone/Acetaminophen 5/325 mg Tab PO PRN (20:10)
--- NOTE | 2016-12-16 03:02 | CON ---
DATE: 12/15/2016 HISTORY OF PRESENT ILLNESS: The patient is a 41-year-old male who has a significant history of back pain and went 2 weeks prior for an L2-L5 laminectomy with fusion and who upon discussion of the situation always had drainage from the wound area. The patient states that he only had chills x 1. He was seen yesterday by the neurosurgeon, Dr. Travis and he sent patient in for evaluation after noting the drainage. Today patient underwent reexploration of L2-L5 lumbar laminectomy with debridement of wound and a washout. Also cultures were taken. The initial cultures of the wound grew Staph aureus. PHYSICAL EXAMINATION: GENERAL: The patient is a pleasant, alert male. HEENT: Within normal limits. NECK: Supple. LUNGS: Clear. HEART: Regular sinus rhythm. ABDOMEN: Soft with positive bowel sounds. EXTREMITIES: No edema. The patient has multiple drains and did not remove any dressings. The patient gives a somewhat unusual history of possible infection(history infected scratches and wounds). Unsure if this represents some possible immune disorder and will, to be thorough order an SANTINO and order a T and B lymphocyte profile. On occasion, you can find a B lymphocyte deficiency and they need to be stimulated either by Bactrim and/or clindamycin. This would be an unusual finding and just being cautious by ordering that. Also the patient may only have these scratches and wounds because of his occupation. LABORATORY DATA: White count 9.9 and 8.7, platelet count 325 and 326, hemoglobin is 12.1. He has 65 polys and 18.5 lymphs, and 12.6 monocytes in the diff. His sed rate is significant also and that is 75. Creatinine is 0.8 and GFR is greater than 60. His C-reactive protein is 13.6. Procalcitonin, both levels that were done, were within normal limits. IMPRESSION: At this point, diagnosis obviously is Staph wound infection. Rule out immune process. I have placed patient on IV vancomycin 1 g q. 12 along with Rocephin 2 grams IV piggyback q. 24. Will observe how the patient responds to the surgery and the IV antibiotic treatment and will make decision on long-term treatment or not within this period of time. Lex Monet MD cc: [id number] TT: 12/16/2016 03:01:03 Confirmation # [id number] Dictation # [id number] an MTDD
[2016-12-16 06:23] LABS: HEMATOCRIT 35.6 % (35.0-51.0); MEAN CELL VOLUME 89.8 fl (80.0-94.0); MEAN CORPUSCULAR HEMOGLOBIN 29.9 pg (27.0-31.0); MEAN CORPUSCULAR HGB CONC 33.2 g/dL (33.0-37.0); WHITE BLOOD COUNT 9.5 K/uL (4.8-10.8)
[2016-12-16 06:49] LABS: BLOOD UREA NITROGEN 14 mg/dl (9-20); CALCIUM 9.3 mg/dL (8.4-10.2); CARBON DIOXIDE 28 mmol/L (22-30); CHLORIDE 96 mmol/L (98-107); GFR AFRICAN-AMERICAN > 60; GLUCOSE,RANDOM 114 mg/dL (75-110); POTASSIUM 4.3 MMOL/L (3.6-5.0); SODIUM 136 mmol/l (132-148)
[2016-12-16] MEDS: cefTRIAXone 2 GM in Sodium Chloride 0.9% 100 ML IVPB SCH (08:32)
[2016-12-16] MEDS: Lactated Ringer's 1,000 ML IV SCH ×2 (08:48→17:55)
[2016-12-16] MEDS ORDERED: Lidocaine 1% Inj (20ml) ONE (12:24)
--- NOTE | 2016-12-16 12:28 | PCM.SURG1 ---
Surgeon's Initial Post Op Note - Surgeon's Notes Surgeon: Gelacio Raymond MD Analyst: NONE Type of Anesthesia: Local Pre-Operative Diagnosis: Infection requiring antibiotics Operative Findings: US showed a patent right basilic vein. Post-Operative Diagnosis: Infection requiring nursing home IV antibiotics Operation Performed: Right basilic vein single lumen picc placement, 37 cm. Tip in SVC. Specimen/Specimens Removed: None Estimated Blood Loss: EBL {In ML}: 2 Blood Products Given: N/A Drains Used: No Drains Post-Op Condition: Fair Date of Surgery/Procedure: 12/16/16 Time of Surgery/Procedure: 12:36
--- NOTE | 2016-12-16 13:48 | CP.PCM.PN ---
<Rae Beal - Last Filed: 12/16/16 13:46> Subjective - Date & Time of Evaluation Date of Evaluation: 12/16/16 Time of Evaluation: 13:46 - Subjective Subjective: evaluated with attending. no overnight events. PICC today. pain well controlled. Objective - Vital Signs/Intake and Output Vital Signs (last 24 hours): Temp Pulse Resp BP Pulse Ox 97.8 F 85 18 130/80 100 12/16/16 12:54 12/16/16 12:54 12/16/16 12:54 12/16/16 12:54 12/16/16 12:54 Intake and Output: 12/16/16 12/16/16 06:59 18:59 Intake Total 1240 Output Total 165 Balance 1075 - Medications Medications: Current Medications Ceftriaxone Sodium 2 gm/ (Sodium Chloride) 100 mls @ 100 mls/hr IVPB DAILY [facility] Last Admin: 12/16/16 08:32 Dose: 100 mls/hr Vancomycin HCl 1 gm/ Sodium (Chloride) 250 mls @ 166.667 mls/hr IVPB Q12 [facility] Last Admin: 12/16/16 08:33 Dose: 166.667 mls/hr Lactated Ringer's (Lactated Ringer's) 1,000 mls @ 100 mls/hr IV .Q10H [facility] Last Admin: 12/16/16 08:48 Dose: 100 mls/hr Morphine Sulfate (Morphine) 4 mg IVP Q4 PRN PRN Reason: Pain, severe (8-10) Last Admin: 12/16/16 13:31 Dose: 4 mg Ondansetron HCl (Zofran Inj) 4 mg IVP Q6 PRN PRN Reason: Nausea/Vomiting Oxycodone/Acetaminophen (Percocet 5/325 Mg Tab) 2 tab PO Q4 PRN PRN Reason: Pain, moderate (4-7) Stop: 12/17/16 13:06 Last Admin: 12/15/16 20:10 Dose: 2 tab - Labs Labs: 12/16/16 05:20 12/16/16 05:20 - Constitutional Appears: Non-toxic, No Acute Distress - Head Exam Head Exam: NORMAL INSPECTION - Eye Exam Eye Exam: Normal appearance - ENT Exam ENT Exam: Mucous Membranes Moist - Neck Exam Neck Exam: Normal Inspection - Respiratory Exam Respiratory Exam: Clear to Ausculation Bilateral - Cardiovascular Exam Cardiovascular Exam: REGULAR RHYTHM - GI/Abdominal Exam GI & Abdominal Exam: Soft - Extremities Exam Extremities Exam: Normal Inspection - Back Exam Additional comments: RAFIA drain x2 - Neurological Exam Neurological Exam: Alert, Oriented x3 - Skin Skin Exam: Dry, Rash (chronic), Warm Assessment and Plan - Assessment and Plan (Free Text) Assessment: 41yo M with PMHx HTN s/p laminectomy and fusion L3-L5 admitted for drainage of incision site. PICC today POD#1 washout/reexploratation s/p laminectomy and fusion L3-L5 with drainage -pain control -zofran -NS on board, appreciate input. -ID on board, appreciate input. -IV abx -PICC today -IR c/s -PT/OT: home PT -wound cx: staph -blood cx NGTD HTN -c/w home med DVT ppx -SCDs Dispo: home PT <Enoc Wiley - Last Filed: 12/19/16 16:07> Objective - Vital Signs/Intake and Output Vital Signs (last 24 hours): Temp Pulse Resp BP Pulse Ox 98.1 F 81 20 142/89 98 12/19/16 15:51 12/19/16 15:51 12/19/16 15:51 12/19/16 15:51 12/19/16 15:51 Intake and Output: 12/19/16 12/19/16 06:59 18:59 Intake Total 350 Output Total 4080 Balance -3730 - Medications Medications: Current Medications Ceftriaxone Sodium 2 gm/ (Sodium Chloride) 100 mls @ 100 mls/hr IVPB DAILY [facility] Last Admin: 12/19/16 09:07 Dose: 100 mls/hr Vancomycin HCl 1 gm/ Sodium (Chloride) 250 mls @ 166.667 mls/hr IVPB Q12 [facility] Last Admin: 12/19/16 09:11 Dose: 166.667 mls/hr Lactated Ringer's (Lactated Ringer's) 1,000 mls @ 100 mls/hr IV .Q10H [facility] Last Admin: 12/19/16 04:56 Dose: Not Given Ondansetron HCl (Zofran Inj) 4 mg IVP Q6 PRN PRN Reason: Nausea/Vomiting Oxycodone/Acetaminophen (Percocet 5/325 Mg Tab) 2 tab PO Q4 PRN PRN Reason: Pain, moderate (4-7) Stop: 12/20/16 14:02 Last Admin: 12/19/16 13:22 Dose: 2 tab - Labs Labs: 12/17/16 06:30 12/17/16 06:30 Assessment and Plan (1) Infected surgical wound Status: Acute (2) Pasteurella infection Status: Acute (3) Hypertension Status: Acute - Assessment and Plan (Free Text) Plan: I was present during evaluation and discussed with Dr Rae gomez plans of care and tx enoc Wiley M.D.
--- NOTE | 2016-12-16 17:16 | CP.PCM.PN ---
Subjective - Date & Time of Evaluation Date of Evaluation: 12/16/16 Time of Evaluation: 17:11 - Subjective Subjective: ID NOTE AWAITING LABS PICC INSERTED TODAY WILL NEED EXTENDED IV ANTIBIOTIC TREATMENT Objective - Vital Signs/Intake and Output Vital Signs (last 24 hours): Temp Pulse Resp BP Pulse Ox 98.7 F 82 20 139/74 98 12/16/16 15:48 12/16/16 15:48 12/16/16 15:48 12/16/16 15:48 12/16/16 15:48 Intake and Output: 12/16/16 12/16/16 06:59 18:59 Intake Total 1240 Output Total 165 Balance 1075 - Medications Medications: Current Medications Ceftriaxone Sodium 2 gm/ (Sodium Chloride) 100 mls @ 100 mls/hr IVPB DAILY [facility] Last Admin: 12/16/16 08:32 Dose: 100 mls/hr Vancomycin HCl 1 gm/ Sodium (Chloride) 250 mls @ 166.667 mls/hr IVPB Q12 [facility] Last Admin: 12/16/16 08:33 Dose: 166.667 mls/hr Lactated Ringer's (Lactated Ringer's) 1,000 mls @ 100 mls/hr IV .Q10H [facility] Last Admin: 12/16/16 08:48 Dose: 100 mls/hr Morphine Sulfate (Morphine) 4 mg IVP Q4 PRN PRN Reason: Pain, severe (8-10) Last Admin: 12/16/16 13:31 Dose: 4 mg Ondansetron HCl (Zofran Inj) 4 mg IVP Q6 PRN PRN Reason: Nausea/Vomiting Oxycodone/Acetaminophen (Percocet 5/325 Mg Tab) 2 tab PO Q4 PRN PRN Reason: Pain, moderate (4-7) Stop: 12/17/16 13:06 Last Admin: 12/15/16 20:10 Dose: 2 tab - Labs Labs: 12/16/16 05:20 12/16/16 05:20
[2016-12-16] MEDS: Oxycodone/Acetaminophen 5/325 mg Tab PO PRN ×2 (17:30→21:52)
--- NOTE | 2016-12-16 19:00 | CARD ---
APPROVED REPORT EKG Measurement Heart [id number] <Conclusion> Normal sinus rhythm Normal ECG
[2016-12-17] MEDS: Oxycodone/Acetaminophen 5/325 mg Tab PO PRN ×6 (02:28→23:59)
[2016-12-17 07:44] LABS: HEMATOCRIT 32.6 % (35.0-51.0); MEAN CELL VOLUME 89.8 fl (80.0-94.0); MEAN CORPUSCULAR HEMOGLOBIN 30.1 pg (27.0-31.0); MEAN CORPUSCULAR HGB CONC 33.6 g/dL (33.0-37.0); RED CELL DISTRIBUTION WIDTH 14.6 % (11.5-14.5); WHITE BLOOD COUNT 8.1 K/uL (4.8-10.8)
[2016-12-17 08:35] LABS: ALB/GLOB RATIO 1.1 (1.0-2.1); ALKALINE PHOSPHATASE 78 U/L (38-126); ALT/SGPT 44 U/L (21-72); AST/SGOT 41 U/L (17-59); BILIRUBIN,TOTAL 0.6 mg/dl (0.2-1.3); BLOOD UREA NITROGEN 14 mg/dl (9-20); CALCIUM 8.9 mg/dL (8.4-10.2); CARBON DIOXIDE 28 mmol/L (22-30); CHLORIDE 99 mmol/L (98-107); GFR AFRICAN-AMERICAN > 60; GLUCOSE,RANDOM 99 mg/dL (75-110); POTASSIUM 4.1 MMOL/L (3.6-5.0); SODIUM 135 mmol/l (132-148); TOTAL PROTEIN 6.8 G/DL (6.3-8.2)
[2016-12-17] MEDS: cefTRIAXone 2 GM in Sodium Chloride 0.9% 100 ML IVPB SCH (09:20)
--- NOTE | 2016-12-17 13:23 | CP.PCM.PN ---
Subjective - Date & Time of Evaluation Date of Evaluation: 12/17/16 Time of Evaluation: 13:20 - Subjective Subjective: Still with a lot of drainage. Has minimal pain. Noted to have positive C and S pasteurell Nugent sno fever. Objective - Vital Signs/Intake and Output Vital Signs (last 24 hours): Temp Pulse Resp BP Pulse Ox 97.8 F 72 20 132/83 97 12/17/16 12:46 12/17/16 12:46 12/17/16 12:46 12/17/16 12:46 12/17/16 12:46 Intake and Output: 12/17/16 12/17/16 06:59 18:59 Output Total 150 Balance -150 - Medications Medications: Current Medications Ceftriaxone Sodium 2 gm/ (Sodium Chloride) 100 mls @ 100 mls/hr IVPB DAILY [facility] Last Admin: 12/17/16 09:20 Dose: 100 mls/hr Vancomycin HCl 1 gm/ Sodium (Chloride) 250 mls @ 166.667 mls/hr IVPB Q12 [facility] Last Admin: 12/17/16 09:20 Dose: 166.667 mls/hr Lactated Ringer's (Lactated Ringer's) 1,000 mls @ 100 mls/hr IV .Q10H [facility] Last Admin: 12/16/16 17:55 Dose: Not Given Morphine Sulfate (Morphine) 4 mg IVP Q4 PRN PRN Reason: Pain, severe (8-10) Last Admin: 12/16/16 13:31 Dose: 4 mg Ondansetron HCl (Zofran Inj) 4 mg IVP Q6 PRN PRN Reason: Nausea/Vomiting Oxycodone/Acetaminophen (Percocet 5/325 Mg Tab) 2 tab PO Q4 PRN PRN Reason: Pain, moderate (4-7) Stop: 12/17/16 13:06 Last Admin: 12/17/16 10:48 Dose: 2 tab - Labs Labs: 12/17/16 06:30 12/17/16 06:30 - Head Exam Head Exam: NORMAL INSPECTION - Eye Exam Eye Exam: Normal appearance - ENT Exam ENT Exam: Mucous Membranes Moist - Respiratory Exam Respiratory Exam: Clear to Ausculation Bilateral - Cardiovascular Exam Cardiovascular Exam: REGULAR RHYTHM Assessment and Plan (1) Infected surgical wound Status: Acute (2) Pasteurella infection Status: Acute (3) Wound dehiscence Status: Acute (4) Hypertension Status: Acute (5) Intractable low back pain Status: Acute - Assessment and Plan (Free Text) Plan: Cont meds cont tx Cont PT iv antibiotics discuss with Dr Monet
[2016-12-17] MEDS: Lactated Ringer's 1,000 ML IV SCH (14:35)
--- NOTE | 2016-12-17 17:29 | CP.PCM.PN ---
Subjective - Date & Time of Evaluation Date of Evaluation: 12/17/16 Time of Evaluation: 17:25 - Subjective Subjective: I D NOTE STILL SIGNIFICANT AMOUNT OF DRAINAGE GRAM STAIN HAS GRAM POS COCCI AND GRAM NEG RODS AWAITING ID OF GRAM- RODS CONTINUE VANCO/ROCEPHEN RENAL FUNCTION IS SO FAR WNL Objective - Vital Signs/Intake and Output Vital Signs (last 24 hours): Temp Pulse Resp BP Pulse Ox 98.0 F 76 18 111/70 98 12/17/16 15:49 12/17/16 15:49 12/17/16 15:49 12/17/16 15:49 12/17/16 15:49 Intake and Output: 12/17/16 12/17/16 06:59 18:59 Intake Total 1000 Output Total 2710 Balance -1710 - Medications Medications: Current Medications Ceftriaxone Sodium 2 gm/ (Sodium Chloride) 100 mls @ 100 mls/hr IVPB DAILY [facility] Last Admin: 12/17/16 09:20 Dose: 100 mls/hr Vancomycin HCl 1 gm/ Sodium (Chloride) 250 mls @ 166.667 mls/hr IVPB Q12 [facility] Last Admin: 12/17/16 09:20 Dose: 166.667 mls/hr Lactated Ringer's (Lactated Ringer's) 1,000 mls @ 100 mls/hr IV .Q10H [facility] Last Admin: 12/17/16 14:35 Dose: 100 mls/hr Morphine Sulfate (Morphine) 4 mg IVP Q4 PRN PRN Reason: Pain, severe (8-10) Last Admin: 12/16/16 13:31 Dose: 4 mg Ondansetron HCl (Zofran Inj) 4 mg IVP Q6 PRN PRN Reason: Nausea/Vomiting Oxycodone/Acetaminophen (Percocet 5/325 Mg Tab) 2 tab PO Q4 PRN PRN Reason: Pain, moderate (4-7) Stop: 12/20/16 14:02 Last Admin: 12/17/16 14:34 Dose: 2 tab - Labs Labs: 12/17/16 06:30 12/17/16 06:30
[2016-12-18] MEDS: Oxycodone/Acetaminophen 5/325 mg Tab PO PRN ×5 (03:59→20:25)
[2016-12-18] MEDS: cefTRIAXone 2 GM in Sodium Chloride 0.9% 100 ML IVPB SCH (08:04)
--- NOTE | 2016-12-18 11:16 | CP.PCM.PN ---
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 On further questioning, patient claims that he has 4 cats and a rabbit at home and stay in bed with him at times. he suugessted that the cats or the rabbit had somehow licked his wound. Objective - Vital Signs/Intake and Output Vital Signs (last 24 hours): Temp Pulse Resp BP Pulse Ox 97.9 F 71 18 105/68 97 12/18/16 08:26 12/18/16 08:26 12/18/16 08:26 12/18/16 08:26 12/18/16 08:26 Intake and Output: 12/18/16 12/18/16 06:59 18:59 Output Total 90 Balance -90 - Medications Medications: Current Medications Ceftriaxone Sodium 2 gm/ (Sodium Chloride) 100 mls @ 100 mls/hr IVPB DAILY [facility] Last Admin: 12/18/16 08:04 Dose: 100 mls/hr Vancomycin HCl 1 gm/ Sodium (Chloride) 250 mls @ 166.667 mls/hr IVPB Q12 [facility] Last Admin: 12/18/16 08:04 Dose: 166.667 mls/hr Lactated Ringer's (Lactated Ringer's) 1,000 mls @ 100 mls/hr IV .Q10H [facility] Last Admin: 12/18/16 00:00 Dose: 100 mls/hr Morphine Sulfate (Morphine) 4 mg IVP Q4 PRN PRN Reason: Pain, severe (8-10) Last Admin: 12/16/16 13:31 Dose: 4 mg Ondansetron HCl (Zofran Inj) 4 mg IVP Q6 PRN PRN Reason: Nausea/Vomiting Oxycodone/Acetaminophen (Percocet 5/325 Mg Tab) 2 tab PO Q4 PRN PRN Reason: Pain, moderate (4-7) Stop: 12/20/16 14:02 Last Admin: 12/18/16 08:02 Dose: 2 tab - Labs Labs: 12/17/16 06:30 12/17/16 06:30 - Head Exam Head Exam: NORMAL INSPECTION - Eye Exam Eye Exam: Normal appearance - ENT Exam ENT Exam: Mucous Membranes Moist - Respiratory Exam Respiratory Exam: Clear to Ausculation Bilateral - Cardiovascular Exam Cardiovascular Exam: REGULAR RHYTHM - GI/Abdominal Exam GI & Abdominal Exam: Normal Bowel Sounds - Neurological Exam Neurological Exam: Awake, Oriented x3 Assessment and Plan (1) Infected surgical wound Status: Acute (2) Pasteurella infection Status: Acute (3) Hypertension Status: Acute - Assessment and Plan (Free Text) Plan: cont meds discussed with Dr Monet cont meds Arvin advised patient to give up on his cats and rabbit.
--- NOTE | 2016-12-18 11:32 | CP.PCM.PN ---
Subjective - Date & Time of Evaluation Date of Evaluation: 12/18/16 Time of Evaluation: 11:14 - Subjective Subjective: I D NOTE WOUND CULTURE :HAS GROWN THE PREVIOUSLY DOCUMENTED STAPH AUREUS AND SECOND BACTERIA PASTURELLA MULTOCIDA WHICH IS USUALLY FOUND IN MOUTH OF DOGS AND CATS. REVIEWED C MICROBIOLOGY AND IS SENSITIVE TO CEFTRIAXONE WILL DEFINITELY NEED 6 WEEKS OF IV ANTIBIOTICS (ANTI STAPH & FOR PASTURELLA) FOR STAPH MAY CONSIDER CHANGE TO DAPTOMYCIN IS ONCE A DAY DOSING) HAVE DISCUSSED C AND WILL DISCUSS C NEUROSURGERY Objective - Vital Signs/Intake and Output Vital Signs (last 24 hours): Temp Pulse Resp BP Pulse Ox 97.9 F 71 18 105/68 97 12/18/16 08:26 12/18/16 08:26 12/18/16 08:26 12/18/16 08:26 12/18/16 08:26 Intake and Output: 12/18/16 12/18/16 06:59 18:59 Output Total 90 Balance -90 - Medications Medications: Current Medications Ceftriaxone Sodium 2 gm/ (Sodium Chloride) 100 mls @ 100 mls/hr IVPB DAILY [facility] Last Admin: 12/18/16 08:04 Dose: 100 mls/hr Vancomycin HCl 1 gm/ Sodium (Chloride) 250 mls @ 166.667 mls/hr IVPB Q12 [facility] Last Admin: 12/18/16 08:04 Dose: 166.667 mls/hr Lactated Ringer's (Lactated Ringer's) 1,000 mls @ 100 mls/hr IV .Q10H [facility] Last Admin: 12/18/16 00:00 Dose: 100 mls/hr Morphine Sulfate (Morphine) 4 mg IVP Q4 PRN PRN Reason: Pain, severe (8-10) Last Admin: 12/16/16 13:31 Dose: 4 mg Ondansetron HCl (Zofran Inj) 4 mg IVP Q6 PRN PRN Reason: Nausea/Vomiting Oxycodone/Acetaminophen (Percocet 5/325 Mg Tab) 2 tab PO Q4 PRN PRN Reason: Pain, moderate (4-7) Stop: 12/20/16 14:02 Last Admin: 12/18/16 08:02 Dose: 2 tab - Labs Labs: 12/17/16 06:30 12/17/16 06:30
[2016-12-18] MEDS: Lactated Ringer's 1,000 ML IV SCH ×3 (16:19→19:59)
[2016-12-19] MEDS: Oxycodone/Acetaminophen 5/325 mg Tab PO PRN ×6 (00:19→21:57)
[2016-12-19] MEDS: Lactated Ringer's 1,000 ML IV SCH ×2 (04:56→17:14)
[2016-12-19] MEDS: cefTRIAXone 2 GM in Sodium Chloride 0.9% 100 ML IVPB SCH (09:07)
--- NOTE | 2016-12-19 16:11 | CP.PCM.PN ---
Subjective - Date & Time of Evaluation Date of Evaluation: 12/19/16 Time of Evaluation: 16:09 - Subjective Subjective: Still with significant drainage Has no fever. Wound culture showed staph aureus and pasteurella Objective - Vital Signs/Intake and Output Vital Signs (last 24 hours): Temp Pulse Resp BP Pulse Ox 98.1 F 81 20 142/89 98 12/19/16 15:51 12/19/16 15:51 12/19/16 15:51 12/19/16 15:51 12/19/16 15:51 Intake and Output: 12/19/16 12/19/16 06:59 18:59 Intake Total 350 Output Total 4080 Balance -3730 - Medications Medications: Current Medications Ceftriaxone Sodium 2 gm/ (Sodium Chloride) 100 mls @ 100 mls/hr IVPB DAILY [facility] Last Admin: 12/19/16 09:07 Dose: 100 mls/hr Vancomycin HCl 1 gm/ Sodium (Chloride) 250 mls @ 166.667 mls/hr IVPB Q12 [facility] Last Admin: 12/19/16 09:11 Dose: 166.667 mls/hr Lactated Ringer's (Lactated Ringer's) 1,000 mls @ 100 mls/hr IV .Q10H [facility] Last Admin: 12/19/16 04:56 Dose: Not Given Ondansetron HCl (Zofran Inj) 4 mg IVP Q6 PRN PRN Reason: Nausea/Vomiting Oxycodone/Acetaminophen (Percocet 5/325 Mg Tab) 2 tab PO Q4 PRN PRN Reason: Pain, moderate (4-7) Stop: 12/20/16 14:02 Last Admin: 12/19/16 13:22 Dose: 2 tab - Labs Labs: 12/17/16 06:30 12/17/16 06:30 - Head Exam Head Exam: NORMAL INSPECTION - Eye Exam Eye Exam: Normal appearance - ENT Exam ENT Exam: Mucous Membranes Moist - Respiratory Exam Respiratory Exam: Clear to Ausculation Bilateral - Cardiovascular Exam Cardiovascular Exam: REGULAR RHYTHM - GI/Abdominal Exam GI & Abdominal Exam: Normal Bowel Sounds - Neurological Exam Neurological Exam: Awake, Oriented x3 Assessment and Plan (1) Infected surgical wound Status: Acute (2) Pasteurella infection Status: Acute (3) Wound dehiscence Status: Acute (4) Hypertension Status: Acute (5) Intractable low back pain Status: Acute - Assessment and Plan (Free Text) Plan: cont meds cont iv antibiotics will keepgrain for now may remove it in am advised subacute rehab
--- NOTE | 2016-12-19 20:17 | CP.PCM.PN ---
Subjective - Date & Time of Evaluation Date of Evaluation: 12/19/16 Time of Evaluation: 20:14 - Subjective Subjective: I D NOTE AFEBRILE NO FEVER OR CHILLS BUT STILL HAS SIGNIFICANT DRAINAGE CONTINUE SAME RX RECULTURE IN AM VANCOMYCIN TROUGH IS 8 WILL CONSIDER CHANGE TO DAPTOMYCIN Objective - Vital Signs/Intake and Output Vital Signs (last 24 hours): Temp Pulse Resp BP Pulse Ox 98.3 F 81 20 110/70 99 12/19/16 19:27 12/19/16 19:27 12/19/16 19:27 12/19/16 19:27 12/19/16 19:27 Intake and Output: 12/19/16 12/20/16 18:59 06:59 Intake Total 1100 Output Total 4135 Balance -3035 - Medications Medications: Current Medications Ceftriaxone Sodium 2 gm/ (Sodium Chloride) 100 mls @ 100 mls/hr IVPB DAILY [facility] Last Admin: 12/19/16 09:07 Dose: 100 mls/hr Vancomycin HCl 1 gm/ Sodium (Chloride) 250 mls @ 166.667 mls/hr IVPB Q12 [facility] Last Admin: 12/19/16 09:11 Dose: 166.667 mls/hr Lactated Ringer's (Lactated Ringer's) 1,000 mls @ 100 mls/hr IV .Q10H [facility] Last Admin: 12/19/16 17:14 Dose: Not Given Ondansetron HCl (Zofran Inj) 4 mg IVP Q6 PRN PRN Reason: Nausea/Vomiting Oxycodone/Acetaminophen (Percocet 5/325 Mg Tab) 2 tab PO Q4 PRN PRN Reason: Pain, moderate (4-7) Stop: 12/20/16 14:02 Last Admin: 12/19/16 17:58 Dose: 2 tab - Labs Labs: 12/17/16 06:30 12/17/16 06:30
[2016-12-20] MEDS: Oxycodone/Acetaminophen 5/325 mg Tab PO PRN ×4 (04:13→20:59)
[2016-12-20] MEDS: Lactated Ringer's 1,000 ML IV SCH ×3 (04:14→22:13)
[2016-12-20 06:47] LABS: HEMATOCRIT 32.7 % (35.0-51.0); MEAN CORPUSCULAR HEMOGLOBIN 30.8 pg (27.0-31.0); MEAN CORPUSCULAR HGB CONC 34.2 g/dL (33.0-37.0); RED CELL DISTRIBUTION WIDTH 14.5 % (11.5-14.5)
[2016-12-20] MEDS: cefTRIAXone 2 GM in Sodium Chloride 0.9% 100 ML IVPB SCH (08:32)
[2016-12-20 15:33] LABS: BLOOD UREA NITROGEN 16 mg/dl (9-20); CALCIUM 9.4 mg/dL (8.4-10.2); CARBON DIOXIDE 27 mmol/L (22-30); CHLORIDE 100 mmol/L (98-107); GFR AFRICAN-AMERICAN > 60; GLUCOSE,RANDOM 98 mg/dL (75-110); POTASSIUM 4.2 MMOL/L (3.6-5.0); SODIUM 140 mmol/l (132-148)
--- NOTE | 2016-12-20 18:56 | CP.PCM.PN ---
Subjective - Date & Time of Evaluation Date of Evaluation: 12/20/16 Time of Evaluation: 19:00 - Subjective Subjective: i d note afebrile drains removed awaiting followup cultures Objective - Vital Signs/Intake and Output Vital Signs (last 24 hours): Temp Pulse Resp BP Pulse Ox 97.6 F 86 20 151/90 H 96 12/20/16 17:00 12/20/16 17:00 12/20/16 17:00 12/20/16 17:00 12/20/16 17:00 Intake and Output: 12/20/16 12/20/16 06:59 18:59 Intake Total 250 1350 Output Total 3092 Balance -2842 1350 - Medications Medications: Current Medications Ceftriaxone Sodium 2 gm/ (Sodium Chloride) 100 mls @ 100 mls/hr IVPB DAILY [facility] Last Admin: 12/20/16 08:32 Dose: 100 mls/hr Vancomycin HCl 1 gm/ Sodium (Chloride) 250 mls @ 166.667 mls/hr IVPB Q12 [facility] Last Admin: 12/20/16 08:36 Dose: 166.667 mls/hr Lactated Ringer's (Lactated Ringer's) 1,000 mls @ 100 mls/hr IV .Q10H [facility] Last Admin: 12/20/16 04:14 Dose: Not Given Ondansetron HCl (Zofran Inj) 4 mg IVP Q6 PRN PRN Reason: Nausea/Vomiting - Labs Labs: 12/20/16 05:20 12/20/16 15:15
[2016-12-21] MEDS: Oxycodone/Acetaminophen 5/325 mg Tab PO PRN ×6 (01:44→23:04)
[2016-12-21] MEDS: Lactated Ringer's 1,000 ML IV SCH ×2 (09:08→17:46)
[2016-12-21] MEDS: cefTRIAXone 2 GM in Sodium Chloride 0.9% 100 ML IVPB SCH (09:10)
--- NOTE | 2016-12-21 09:29 | CP.PCM.PN ---
Subjective - Date & Time of Evaluation Date of Evaluation: 12/20/16 Time of Evaluation: 09:40 - Subjective Subjective: Patient continues to have significant drainage. Has no fever. Lesions on bot lower ext seem to have subsided On antibiotics for pasteurella. Objective - Vital Signs/Intake and Output Vital Signs (last 24 hours): Temp Pulse Resp BP Pulse Ox 97.5 F L 65 20 106/72 94 L 12/21/16 08:24 12/21/16 08:24 12/21/16 08:24 12/21/16 08:24 12/21/16 08:24 Intake and Output: 12/21/16 12/21/16 06:59 18:59 Intake Total 880 880 Output Total 700 792 Balance 180 88 - Medications Medications: Current Medications Ceftriaxone Sodium 2 gm/ (Sodium Chloride) 100 mls @ 100 mls/hr IVPB DAILY [facility] Last Admin: 12/21/16 09:10 Dose: 100 mls/hr Vancomycin HCl 1 gm/ Sodium (Chloride) 250 mls @ 166.667 mls/hr IVPB Q12 [facility] Last Admin: 12/21/16 09:11 Dose: 166.667 mls/hr Lactated Ringer's (Lactated Ringer's) 1,000 mls @ 100 mls/hr IV .Q10H [facility] Last Admin: 12/21/16 09:08 Dose: Not Given Ondansetron HCl (Zofran Inj) 4 mg IVP Q6 PRN PRN Reason: Nausea/Vomiting Oxycodone/Acetaminophen (Percocet 5/325 Mg Tab) 2 tab PO Q4 PRN PRN Reason: Pain, moderate (4-7) Stop: 12/23/16 20:48 Last Admin: 12/21/16 06:36 Dose: 2 tab - Labs Labs: 12/20/16 05:20 12/20/16 15:15 - Head Exam Head Exam: NORMAL INSPECTION - Eye Exam Eye Exam: Normal appearance - ENT Exam ENT Exam: Mucous Membranes Moist - Respiratory Exam Respiratory Exam: Clear to Ausculation Bilateral - Cardiovascular Exam Cardiovascular Exam: REGULAR RHYTHM - GI/Abdominal Exam GI & Abdominal Exam: Normal Bowel Sounds - Neurological Exam Neurological Exam: Awake, Oriented x3 Assessment and Plan (1) Infected surgical wound Status: Acute (2) Pasteurella infection Status: Acute (3) Wound dehiscence Status: Acute (4) Hypertension Status: Acute (5) Intractable low back pain Status: Acute - Assessment and Plan (Free Text) Plan: cont meds cont tx cont PT IV antibiotics for few weeks subacute rehab
--- NOTE | 2016-12-21 11:51 | CP.PCM.PN ---
Subjective - Date & Time of Evaluation Date of Evaluation: 12/21/16 Time of Evaluation: 11:48 - Subjective Subjective: evaluated with attending. no overnight events. PICC in place. tolerating PO. pain well controlled. Objective - Vital Signs/Intake and Output Vital Signs (last 24 hours): Temp Pulse Resp BP Pulse Ox 97.5 F L 65 20 106/72 94 L 12/21/16 08:24 12/21/16 08:24 12/21/16 08:24 12/21/16 08:24 12/21/16 08:24 Intake and Output: 12/21/16 12/21/16 06:59 18:59 Intake Total 880 880 Output Total 700 792 Balance 180 88 - Medications Medications: Current Medications Ceftriaxone Sodium 2 gm/ (Sodium Chloride) 100 mls @ 100 mls/hr IVPB DAILY [facility] Last Admin: 12/21/16 09:10 Dose: 100 mls/hr Vancomycin HCl 1 gm/ Sodium (Chloride) 250 mls @ 166.667 mls/hr IVPB Q12 [facility] Last Admin: 12/21/16 09:11 Dose: 166.667 mls/hr Lactated Ringer's (Lactated Ringer's) 1,000 mls @ 100 mls/hr IV .Q10H [facility] Last Admin: 12/21/16 09:08 Dose: Not Given Ondansetron HCl (Zofran Inj) 4 mg IVP Q6 PRN PRN Reason: Nausea/Vomiting Oxycodone/Acetaminophen (Percocet 5/325 Mg Tab) 2 tab PO Q4 PRN PRN Reason: Pain, moderate (4-7) Stop: 12/23/16 20:48 Last Admin: 12/21/16 11:00 Dose: 2 tab - Labs Labs: 12/20/16 05:20 12/20/16 15:15 - Constitutional Appears: Non-toxic, No Acute Distress - Head Exam Head Exam: NORMAL INSPECTION - Eye Exam Eye Exam: Normal appearance - ENT Exam ENT Exam: Mucous Membranes Moist - Neck Exam Neck Exam: Normal Inspection - Respiratory Exam Respiratory Exam: NORMAL BREATHING PATTERN - Cardiovascular Exam Cardiovascular Exam: REGULAR RHYTHM - GI/Abdominal Exam GI & Abdominal Exam: Soft - Back Exam Additional comments: dressing CDI - Neurological Exam Neurological Exam: Alert, Oriented x3 Additional comments: motor/sensation grossly intact - Skin Skin Exam: Dry, Warm Assessment and Plan (1) Infected surgical wound Status: Acute (2) Pasteurella infection Status: Acute (3) Hypertension Status: Acute - Assessment and Plan (Free Text) Assessment: -afebrile, no leukocytosis -pain control -zofran -NS on board, appreciate input. -ID on board, appreciate input. -IV abx -PICC in place -wound cx: staph aureus, pasteurella multocida -blood cx NGTD
--- NOTE | 2016-12-21 17:13 | CP.PCM.PN ---
Subjective - Date & Time of Evaluation Date of Evaluation: 12/21/16 Time of Evaluation: 03:30 - Subjective Subjective: pt without c/o,drains removed yesterday,minimal drainage today,ambulating with PT,tracy PO,voiding without c/o,+ BM,AF,has PICC line and on Vanco/Ceftriaxone. Objective - Vital Signs/Intake and Output Vital Signs (last 24 hours): Temp Pulse Resp BP Pulse Ox 98.1 F 80 20 121/70 98 12/21/16 16:21 12/21/16 16:21 12/21/16 16:21 12/21/16 16:21 12/21/16 16:21 Intake and Output: 12/21/16 12/21/16 06:59 18:59 Intake Total 880 880 Output Total 700 792 Balance 180 88 - Medications Medications: Current Medications Ceftriaxone Sodium 2 gm/ (Sodium Chloride) 100 mls @ 100 mls/hr IVPB DAILY [facility] Last Admin: 12/21/16 09:10 Dose: 100 mls/hr Vancomycin HCl 1 gm/ Sodium (Chloride) 250 mls @ 166.667 mls/hr IVPB Q12 [facility] Last Admin: 12/21/16 09:11 Dose: 166.667 mls/hr Lactated Ringer's (Lactated Ringer's) 1,000 mls @ 100 mls/hr IV .Q10H [facility] Last Admin: 12/21/16 09:08 Dose: Not Given Ondansetron HCl (Zofran Inj) 4 mg IVP Q6 PRN PRN Reason: Nausea/Vomiting Oxycodone/Acetaminophen (Percocet 5/325 Mg Tab) 2 tab PO Q4 PRN PRN Reason: Pain, moderate (4-7) Stop: 12/23/16 20:48 Last Admin: 12/21/16 14:58 Dose: 2 tab - Labs Labs: 12/20/16 05:20 12/20/16 15:15 - Constitutional Appears: Well, Non-toxic, No Acute Distress - Head Exam Head Exam: ATRAUMATIC, NORMAL INSPECTION, NORMOCEPHALIC - Eye Exam Eye Exam: EOMI, Normal appearance, PERRL - ENT Exam ENT Exam: Mucous Membranes Moist - Neck Exam Neck Exam: Normal Inspection - Respiratory Exam Respiratory Exam: Clear to Ausculation Bilateral - Cardiovascular Exam Cardiovascular Exam: REGULAR RHYTHM, +S1, +S2 - GI/Abdominal Exam GI & Abdominal Exam: Soft - Back Exam Additional comments: wound C/D/I,no drainage expressed,no fluctuance,sutures patent,+ incisional tenderness,dressing changed - Neurological Exam Neurological Exam: Alert, Oriented x3 Neuro motor strength exam: Left Upper Extremity: 5, Right Upper Extremity: 5, Left Lower Extremity: 5, Right Lower Extremity: 5 Additional comments: residual RLE paresthesias - Psychiatric Exam Psychiatric exam: Normal Affect, Normal Mood - Skin Skin Exam: Dry Assessment and Plan - Assessment and Plan (Free Text) Assessment: 41 yo male POD#6 Re exploration of L3-5 Laminectomy/Instrumented Fusion/Washout of infected wound,neurologically stable with residual RLE radiculapathy, Hemodynamincally stable Plan: wound cultures noted,cont IV abx x 6 weeks,care per admitting team,appreciate I.D recommendation,rehab planning,all d/w Dr. rTavis.
[2016-12-22] MEDS: Oxycodone/Acetaminophen 5/325 mg Tab PO PRN ×5 (03:26→19:59)
[2016-12-22 07:56] LABS: HEMATOCRIT 33.3 % (35.0-51.0); MEAN CELL VOLUME 88.6 fl (80.0-94.0); MEAN CORPUSCULAR HEMOGLOBIN 29.8 pg (27.0-31.0); MEAN CORPUSCULAR HGB CONC 33.6 g/dL (33.0-37.0); RED CELL DISTRIBUTION WIDTH 14.5 % (11.5-14.5); WHITE BLOOD COUNT 9.1 K/uL (4.8-10.8)
[2016-12-22 08:05] LABS: BLOOD UREA NITROGEN 19 mg/dl (9-20); CALCIUM 8.7 mg/dL (8.4-10.2); CARBON DIOXIDE 24 mmol/L (22-30); CHLORIDE 102 mmol/L (98-107); GFR AFRICAN-AMERICAN > 60; GLUCOSE,RANDOM 81 mg/dL (75-110); SODIUM 136 mmol/l (132-148)
[2016-12-22 08:19] LABS: POTASSIUM 5.9 MMOL/L (3.6-5.0)
[2016-12-22] MEDS: cefTRIAXone 2 GM in Sodium Chloride 0.9% 100 ML IVPB SCH (09:05)
--- NOTE | 2016-12-22 13:26 | CP.PCM.PN ---
Subjective - Date & Time of Evaluation Date of Evaluation: 12/22/16 Time of Evaluation: 11:24 - Subjective Subjective: Patient seen and examined at bedside. No acute events overnight. PICC in place. tolerating PO. pain well controlled. Afebrile. Objective - Vital Signs/Intake and Output Vital Signs (last 24 hours): Temp Pulse Resp BP Pulse Ox 98.5 F 71 18 128/84 99 12/22/16 09:00 12/22/16 07:42 12/22/16 07:42 12/22/16 07:42 12/22/16 07:42 - Medications Medications: Current Medications Ceftriaxone Sodium 2 gm/ (Sodium Chloride) 100 mls @ 100 mls/hr IVPB DAILY [facility] Last Admin: 12/22/16 09:05 Dose: 100 mls/hr Vancomycin HCl 1 gm/ Sodium (Chloride) 250 mls @ 166.667 mls/hr IVPB Q12 [facility] Last Admin: 12/21/16 20:53 Dose: 166.667 mls/hr Lactated Ringer's (Lactated Ringer's) 1,000 mls @ 100 mls/hr IV .Q10H [facility] Last Admin: 12/21/16 17:46 Dose: Not Given Ondansetron HCl (Zofran Inj) 4 mg IVP Q6 PRN PRN Reason: Nausea/Vomiting Oxycodone/Acetaminophen (Percocet 5/325 Mg Tab) 2 tab PO Q4 PRN PRN Reason: Pain, moderate (4-7) Stop: 12/23/16 20:48 Last Admin: 12/22/16 11:58 Dose: 2 tab - Labs Labs: 12/22/16 06:50 12/22/16 11:20 - Constitutional Appears: Well - Head Exam Head Exam: ATRAUMATIC, NORMAL INSPECTION, NORMOCEPHALIC - Eye Exam Eye Exam: EOMI, Normal appearance, PERRL - Neck Exam Neck Exam: Full ROM, Normal Inspection. absent: Lymphadenopathy - Respiratory Exam Respiratory Exam: Clear to Ausculation Bilateral, NORMAL BREATHING PATTERN - Cardiovascular Exam Cardiovascular Exam: REGULAR RHYTHM, +S1, +S2. absent: Murmur - GI/Abdominal Exam GI & Abdominal Exam: Soft, Normal Bowel Sounds. absent: Tenderness - Extremities Exam Extremities Exam: Normal Inspection - Back Exam Additional comments: dressing CDI, no drainage noted - Neurological Exam Neurological Exam: Alert, Awake, Oriented x3 - Psychiatric Exam Psychiatric exam: Normal Affect, Normal Mood - Skin Skin Exam: Dry, Normal Color, Warm Assessment and Plan (1) Infected surgical wound Assessment & Plan: L3-L5 laminectomy with fusion 12/03/16 Status: Acute (2) Pasteurella infection Status: Acute (3) Hypertension Status: Acute - Assessment and Plan (Free Text) Assessment: 41yo M with PMHx HTN s/p laminectomy and fusion L3-L5 admitted for drainage of incision site found to have pasteurella growth in wound Plan: -afebrile, no leukocytosis -pain control -zofran -NeuroSurgery on board, appreciate input. -ID on board, appreciate input. 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
--- NOTE | 2016-12-22 20:23 | CP.PCM.PN ---
Subjective - Date & Time of Evaluation Date of Evaluation: 12/22/16 Time of Evaluation: 20:12 - Subjective Subjective: ID NOTE AFFEBRILE SANTINO SCREEN IS NEGATIVE CONTINUE SAME RX Objective - Vital Signs/Intake and Output Vital Signs (last 24 hours): Temp Pulse Resp BP Pulse Ox 97.2 F L 81 20 135/73 95 12/22/16 17:00 12/22/16 16:35 12/22/16 16:35 12/22/16 16:35 12/22/16 16:35 - Medications Medications: Current Medications Ceftriaxone Sodium 2 gm/ (Sodium Chloride) 100 mls @ 100 mls/hr IVPB DAILY [facility] Last Admin: 12/22/16 09:05 Dose: 100 mls/hr Vancomycin HCl 1 gm/ Sodium (Chloride) 250 mls @ 166.667 mls/hr IVPB Q12 [facility] Last Admin: 12/22/16 14:27 Dose: 166.667 mls/hr Lactated Ringer's (Lactated Ringer's) 1,000 mls @ 100 mls/hr IV .Q10H [facility] Last Admin: 12/21/16 17:46 Dose: Not Given Ondansetron HCl (Zofran Inj) 4 mg IVP Q6 PRN PRN Reason: Nausea/Vomiting Oxycodone/Acetaminophen (Percocet 5/325 Mg Tab) 2 tab PO Q4 PRN PRN Reason: Pain, moderate (4-7) Stop: 12/23/16 20:48 Last Admin: 12/22/16 19:59 Dose: 2 tab - Labs Labs: 12/22/16 06:50 12/22/16 11:20
[2016-12-23] MEDS: Oxycodone/Acetaminophen 5/325 mg Tab PO PRN ×4 (06:08→14:23)
[2016-12-23 07:40] VITALS: TEMP 98.4
[2016-12-23 08:46] LABS: HEMATOCRIT 34.2 % (35.0-51.0); MEAN CELL VOLUME 88.4 fl (80.0-94.0); MEAN CORPUSCULAR HEMOGLOBIN 29.6 pg (27.0-31.0); MEAN CORPUSCULAR HGB CONC 33.4 g/dL (33.0-37.0); RED CELL DISTRIBUTION WIDTH 14.2 % (11.5-14.5); WHITE BLOOD COUNT 9.2 K/uL (4.8-10.8)
[2016-12-23 08:54] LABS: BLOOD UREA NITROGEN 15 mg/dl (9-20); CALCIUM 9.5 mg/dL (8.4-10.2); CARBON DIOXIDE 29 mmol/L (22-30); CHLORIDE 99 mmol/L (98-107); GFR AFRICAN-AMERICAN > 60; GLUCOSE,RANDOM 104 mg/dL (75-110); POTASSIUM 4.1 MMOL/L (3.6-5.0); SODIUM 138 mmol/l (132-148)
[2016-12-23] MEDS: cefTRIAXone 2 GM in Sodium Chloride 0.9% 100 ML IVPB SCH (09:45)
--- NOTE | 2016-12-23 11:25 | VASCULAR ---
PROCEDURE: Date of procedure: 12/20/2016 Procedure: 1. Placement of a right arm PICC with ultrasound and fluoroscopic guidance, CPT 68424 2. PICC tip confirmation with spot radiograph and is in the superior vena cava Medications: 1 percent lidocaine Total Fluoro time: 11.2 seconds Radiation: 1.77 mGy EBL: 2 cc HISTORY: Poor venous access TECHNIQUE: Following informed consent and procedure time-out, the patient was placed supine on the interventional table and the right arm prepped and draped in the usual sterile fashion. Ultrasound showed a patent and compressible right basilic vein. After the skin was anesthetized with lidocaine, the basilic vein was accessed with micro micropuncture technique using ultrasound guidance. A guidewire was then advanced under fluoroscopic guidance into the superior vena cava. An image documenting ultrasound guidance for vascular access was permanently saved. The length of the single-lumen 4 [place]hi PICC was trimmed to 37 centimeters and advanced through a peel-away sheath. The PICC was position with tip of PICC confirm a spot radiograph the superior vena cava. The PICC was secured to the patient's skin. The PICC was flushed. A biopatch and sterile dressing was applied. IMPRESSION: Placement of a single-lumen 4 Bangladeshi PICC trimmed to 37 centimeters via right basilic vein. The tip of the PICC is confirmed with spot radiograph and is in the superior vena cava.
--- NOTE | 2016-12-23 13:54 | CP.PCM.PN ---
Subjective - Date & Time of Evaluation Date of Evaluation: 12/23/16 Time of Evaluation: 10:51 - Subjective Subjective: Patient seen and examined at bedside. No acute events overnight. PICC in place. tolerating PO. pain well controlled. Afebrile. No chest pain, sob, abdominal pain, or palpitations. Patient's spoke with [employer] last night. Objective - Vital Signs/Intake and Output Vital Signs (last 24 hours): Temp Pulse Resp BP Pulse Ox 98.4 F 61 20 125/67 97 12/23/16 07:40 12/23/16 07:40 12/23/16 07:40 12/23/16 07:40 12/23/16 07:40 - Medications Medications: Current Medications Ceftriaxone Sodium 2 gm/ (Sodium Chloride) 100 mls @ 100 mls/hr IVPB DAILY [facility] Last Admin: 12/23/16 09:45 Dose: 100 mls/hr Vancomycin HCl 1 gm/ Sodium (Chloride) 250 mls @ 166.667 mls/hr IVPB Q12 [facility] Last Admin: 12/23/16 09:46 Dose: 166.667 mls/hr Lactated Ringer's (Lactated Ringer's) 1,000 mls @ 100 mls/hr IV .Q10H [facility] Last Admin: 12/21/16 17:46 Dose: Not Given Ondansetron HCl (Zofran Inj) 4 mg IVP Q6 PRN PRN Reason: Nausea/Vomiting Oxycodone/Acetaminophen (Percocet 5/325 Mg Tab) 2 tab PO Q4 PRN PRN Reason: Pain, moderate (4-7) Stop: 12/23/16 20:48 Last Admin: 12/23/16 10:20 Dose: 2 tab - Labs Labs: 12/23/16 07:45 12/23/16 07:45 - Constitutional Appears: Well, Non-toxic, No Acute Distress - Head Exam Head Exam: ATRAUMATIC, NORMAL INSPECTION, NORMOCEPHALIC - Eye Exam Eye Exam: Normal appearance - Neck Exam Neck Exam: Normal Inspection - Respiratory Exam Respiratory Exam: Clear to Ausculation Bilateral, NORMAL BREATHING PATTERN - Cardiovascular Exam Cardiovascular Exam: REGULAR RHYTHM, +S1, +S2. absent: Murmur - GI/Abdominal Exam GI & Abdominal Exam: Soft, Normal Bowel Sounds. absent: Tenderness - Extremities Exam Extremities Exam: Normal Inspection. absent: Calf Tenderness - Neurological Exam Neurological Exam: Alert, Awake, Oriented x3 - Psychiatric Exam Psychiatric exam: Normal Affect, Normal Mood - Skin Skin Exam: Dry, Intact, Normal Color, Warm Assessment and Plan (1) Infected surgical wound Status: Acute (2) Pasteurella infection Status: Acute (3) Hypertension Status: Acute - Assessment and Plan (Free Text) Assessment: 41 yo M with PMHx HTN s/p laminectomy and fusion L3-L5 admitted for drainage of incision site found to have pasteurella growth in wound -afebrile, no leukocytosis -pain control -NeuroSurgery on board, appreciate input. -ID on board, appreciate input. -IV abx requested x 6 weeks total (rocephin/vanco) -Awaiting insurance approval for continued treatment/length of IV abx -PICC in place -wound cx: staph aureus, pasteurella multocida -blood cx NGTD -DVT prophylaxis with SCDs -Stressed importance of removing risk of pasteurella infection including animals at home
[2016-12-23 16:07] VITALS: BP 140/77; PULSE 80; RESP 18; O2SAT 95
== END 2016-12-23 18:20 | DRG 857 ==
LOC: H.ER 10:58 → H.ERHOLD 12:17 → H.TEL 17:53 → H.MEDSURG1 12-20 23:10
PROVIDERS: ADMIT Family Medicine; ATTEND Family Medicine
PROC: 02HV33Z Insertion of Infusion Device into Superior Vena Cava, Percutaneous Approach (ICD-10-PCS; 2016-12-15)
PROC: B518ZZA Fluoroscopy of Superior Vena Cava, Guidance (ICD-10-PCS; 2016-12-15)
PROC: 3E04329 Introduction of Other Anti-infective into Central Vein, Percutaneous Approach (ICD-10-PCS; 2016-12-15)
PROC: 0JB70ZZ Excision of Back Subcutaneous Tissue and Fascia, Open Approach (ICD-10-PCS; principal; 2016-12-15 11:00)
DX: T81.4XXA Infection following a procedure, initial encounter (principal); T81.32XA Disruption of internal operation (surgical) wound, not elsewhere classified, initial encounter; A28.0 Pasteurellosis; B95.61 Methicillin susceptible Staphylococcus aureus infection as the cause of diseases classified elsewhere; I10 Essential (primary) hypertension; G89.29 Other chronic pain; M54.5 Low back pain; Y83.8 Other surgical procedures as the cause of abnormal reaction of the patient, or of later complication, without mention of misadventure at the time of the procedure; Y92.89 Other specified places as the place of occurrence of the external cause

== ENCOUNTER 2017-01-26 00:56 | Emergency (ER) | payer BC ==
[2017-01-26 00:56] VITALS: BMI 31.6
[2017-01-26 01:04] VITALS: BP 118/71; PULSE 94; RESP 16; TEMP 98; O2SAT 98
--- NOTE | 2017-01-26 01:42 | ED PDOC ---
HPI: General Adult Time Seen by Provider: 01/26/17 01:09 Chief Complaint (Nursing): Lower Extremity Problem/Injury Chief Complaint (Provider): leg pain History Per: Patient Additional Complaint(s): Patient was sent to ED from [facility] for pain medication dose. Patient is s/p lumbar laminectomy in December 2016 with subsequent wound infection. He has been at [facility] for the past month and this evening the [facility] ran out of percocet. Nurse at [facility] contacted [facility] personnel officer who stated to have patient transferred to ED for percocet dose. Patient was given tramadol at [facility] but this did not help the pain. Past Medical History Reviewed: Historical Data, Nursing Documentation, Vital Signs Vital Signs: Last Vital Signs Temp 98.0 F 01/26/17 01:02 Pulse 94 H 01/26/17 01:02 Resp 16 01/26/17 01:02 BP 118/71 01/26/17 01:02 Pulse Ox 98 01/26/17 01:42 - Medical History PMH: Back Problems, HTN - Surgical History Surgical History: Back Surgery - Family History Family History: States: No Known Family Hx - Living Arrangements Living Arrangements: Group Home/Assist Lvng - Social History Current smoker - smoking cessation education provided: No Ex-Smoker (has not smoked in the last 12 months): Yes (quit a few months ago) Alcohol: Other ("I quit") Drugs: Denies - Home Medications Home Medications: Ambulatory Orders Medication Instructions Recorded Lisinopril [Zestril] 10 mg PO DAILY 11/29/16 Vancomycin 1 GM [Vancomycin 1GM in 1 gm IVPB Q12 #84 bag 12/23/16 Normal Saline Addvantage] cefTRIAXone [Rocephin] 2 gm IV DAILY #42 vial 12/23/16 oxyCODONE/Acetaminophen [Percocet 2 tab PO Q4 PRN #14 tab 12/23/16 5/325 mg Tab] - Allergies Allergies/Adverse Reactions: Allergies Allergy/AdvReac Type Severity Reaction Status Date / Time No Known Allergies Allergy Verified 12/14/16 11:08 Review of Systems ROS Statement: Except As Marked, All Systems Reviewed And Found Negative Constitutional: Negative for: Fever Genitourinary Male: Negative for: Dysuria, Frequency, Incontinence, Hematuria Musculoskeletal: Positive for: Back Pain, Leg Pain Physical Exam - Reviewed Nursing Documentation Reviewed: Yes Vital Signs Reviewed: Yes - Physical Exam Appears: Positive for: Well, Non-toxic, No Acute Distress Skin: Negative for: Rash Eye Exam: Positive for: Normal appearance Cardiovascular/Chest: Positive for: Regular Rate, Rhythm Respiratory: Positive for: Normal Breath Sounds Extremity: Positive for: Normal ROM Neurologic/Psych: Positive for: Alert, Oriented - ECG O2 Sat by Pulse Oximetry: 98 Pulse Ox Interpretation: Normal Medical Decision Making Medical Decision Makin41 year old here for pain management I spoke with nurse sales representative supervisor at [facility] who confirmed that [facility] is out of percocet and that patient does have standing order for 2 5 mg percocet tabs every 4 hrs. 2 tabs percocet administered in ED. Patient is stable for transfer back to [facility]. Disposition - Clinical Impression Clinical Impression: Chronic pain - Patient ED Disposition Is Patient to be Admitted: No Counseled Patient/Family Regarding: Need For Followup - Disposition Referrals: Otis Hudson MD [Primary Care Provider] - Disposition: Other Institution (Transfer back to [facility]) Disposition Time: 02:14 Condition: STABLE Instructions: Chronic Pain (ED)
[2017-01-26] MEDS ORDERED: Oxycodone/Acetaminophen 5/325 mg Tab PO STA (01:43)
[2017-01-26] MEDS ORDERED: Oxycodone/Acetaminophen 5/325 mg Tab ONE (01:57)
== END 2017-01-26 03:29 ==
LOC: H.ER 00:56
DX: G89.29 Other chronic pain (principal); I10 Essential (primary) hypertension; Z87.891 Personal history of nicotine dependence